=== PATIENT | male | born 1935 | race Caucasian/White ===

== ENCOUNTER 2016-06-19 09:00 | Day surgery (SDC) | payer OTHER, BC ==
[2016-06-18 14:32] VITALS: BMI 25.4
[2016-06-19] MEDS ORDERED: LIDOCAINE HCL/PF 2% SDV 5ML VIAL ONE (10:28)
[2016-06-19] MEDS ORDERED: PROPOFOL 20 ML ONE ×3 (10:28→10:29)
[2016-06-19 11:00] VITALS: TEMP 97.5
[2016-06-19 11:25] VITALS: BP 129/57; PULSE 73
--- NOTE | 2016-06-20 15:00 | PATH ---
Surgical Pathology Report Patient Name: NAKIA PORTER [facility]. Rec. #: [id number] /Age/Gender: 1935 (Age: 81) / M Account: [id number] Location: [facility]-ENDOSCOPY Taken: 06/19/2016 Received: 06/19/2016 Reported: 06/20/2016 Physicians: Ruddy Mason D.O. Specimen(s) Received A: BX CECUM B: BX DISTAL TRANSVERSE COLON POLYP Clinical History Fecal occult blood positive, history of colon polyps Colon polyp Final Diagnosis A. COLON, CECUM, BIOPSY: COLONIC MUCOSA WITH FOCAL ACTIVE COLITIS WITH SURFACE EROSION (SEE COMMENT). NO EVIDENCE OF SIGNIFICANT ARCHITECTURAL DISTORTION, GRANULOMATA OR DYSPLASIA. Comment: The findings are non-specific and may represent active colitis of various etiologies including infections and drug/toxin injury. No significant features of chronicity are seen: idiopathic bowel disease is less likely. Clinical and endoscopic correlations and follow up are suggested. B. COLON, DISTAL TRANSVERSE, POLYP, BIOPSY: POLYPOID FRAGMENT OF COLONIC MUCOSA WITH ACTIVE INFLAMMATION WITH SURFACE ULCERATION MOST CONSISTENT WITH INFLAMMATORY-TYPE POLYP. NO DYSPLASIA/ADENOMA IDENTIFIED. Electronically Signed Heber Crawford M.D. Gross Description A. Received in formalin, labeled "biopsy cecum" are 2 yanes, irregular portions of soft tissue averaging 0.2 cm in greatest dimension. The specimens are submitted in toto in one cassette. B. Received in formalin, labeled "biopsy distal transverse colon polyp" is a yanes, irregular portion of soft tissue measuring 0.3 cm in greatest dimension. The specimen is submitted in toto in one cassette. 06/19/2016 saudi06/19/2016
== END 2016-06-19 11:30 | disposition home or self-care (01) ==
LOC: JASU-ENDO 09:00
PROVIDERS: ATTEND Internal Medicine Gastroenterology
PROC: 0DBL8ZX Excision of Transverse Colon, Via Natural or Artificial Opening Endoscopic, Diagnostic (ICD-10-PCS; principal; 2016-06-19 10:00)
DX: Z12.11 Encounter for screening for malignant neoplasm of colon (principal); Z86.010 Personal history of colon polyps; D12.3 Benign neoplasm of transverse colon; K64.8 Other hemorrhoids; K92.1 Melena
CPT/HCPCS: 88305-TC

== ENCOUNTER 2017-12-09 14:55 | Inpatient (IN) | payer OTHER, BC ==
[2017-12-09 15:14] VITALS: BMI 25.0
--- NOTE | 2017-12-09 16:05 | PDOC ---
History of Present Illness - General Chief Complaint: Pain, Acute Stated Complaint: SENT BY PCP - History of Present Illness Initial Comments: The patient is an 82M with a history of T2DM and HTN who presents with 2d of RUQ bloating and fullness after meals. He was sent in for evaluation by his PCP , Dr. Erick Marley. The patient reports that he has never had symptoms like this before, endorses associated chills today, but denies fevers, N/V/C/D, denies chest pain, SOB, abdominal pain. Reports being compliant with his medications, his BG at home today was 125. The patient has a history of hernia repair in the past, but no other intra-abdominal surgery. 12/09/17 16:18 Past History - Past Medical History Allergies/Adverse Reactions: Allergies Allergy/AdvReac Type Severity Reaction Status Date / Time No Known Allergies Allergy Verified 12/09/17 15:06 Home Medications: Ambulatory Orders Aspirin Coated [Ecotrin -] 81 mg PO DAILY #1 02/01/12 Glimepiride [Amaryl] 2 mg PO DAILY 02/01/12 Metformin HCl [Riomet] 500 mg PO DAILY 02/01/12 Multivit-Min/FA/Lycopene/Lut [Centrum Silver Tablet] 1 each PO DAILY 02/01/12 Cholecalciferol (Vitamin D3) [Vitamin D -] 1,000 unit PO DAILY 06/19/16 Hydrochlorothiazide [Hctz -] 12.5 mg PO DAILY 06/19/16 Potassium Chloride [K-Dur -] 10 meq PO DAILY 06/19/16 Irbesartan [Avapro] 150 mg PO ASDIR 12/09/17 Magnesium Oxide [Mag-Ox -] 400 mg PO DAILY 12/09/17 Multivitamin/Iron/Folic Acid [Centrum Adults Tablet] 1 each PO DAILY 12/09/17 Telmisartan [Micardis] 40 mg PO DAILY 12/09/17 Anemia: No Asthma: No Cancer: Yes (skin rt ear) Cardiac Disorders: No CVA: No COPD: No CHF: No Dementia: No Diabetes: Yes (NIDDM) GI Disorders: No Disorders: No HTN: Yes Hypercholesterolemia: No Liver Disease: No Seizures: No Thyroid Disease: No - Surgical History Abdominal Surgery: No Appendectomy: No Cardiac Surgery: No Cholecystectomy: No Lung Surgery: No Neurologic Surgery: No - Suicide/Smoking/Psychosocial Hx Smoking History: Never smoked Hx Alcohol Use: Yes (DAILY) Drug/Substance Use Hx: No Substance Use Type: None Review of Systems - Review of Systems Able to Perform ROS?: Yes Comments:: GENERAL/CONSTITUTIONAL: No fever or chills. No weakness HEAD, EYES, EARS, NOSE AND THROAT: No change in vision. No ear pain or discharge. No sore throat CARDIOVASCULAR: No chest pain or shortness of breath RESPIRATORY: No cough, wheezing, or hemoptysis GASTROINTESTINAL: per HPI GENITOURINARY: No dysuria, frequency, or change in urination MUSCULOSKELETAL: No joint or muscle swelling or pain. No neck or back pain SKIN: No rash NEUROLOGIC: No headache, vertigo, loss of consciousness, or change in strength/ sensation ENDOCRINE: No increased thirst. No abnormal weight change HEMATOLOGIC/LYMPHATIC: No anemia, easy bleeding, or history of blood clots ALLERGIC/IMMUNOLOGIC: No hives or skin allergy 12/09/17 16:23 Is the patient limited Korean proficient: No *Physical Exam - Vital Signs Last Vital Signs Temp Pulse Resp BP Pulse Ox 97.8 F 66 17 177/62 96 12/09/17 15:11 12/09/17 15:11 12/09/17 15:11 12/09/17 15:11 12/09/17 15:11 - Physical Exam Comments: GENERAL: Awake, alert, and fully oriented, in no acute distress HEAD: No signs of trauma, normocephalic, atraumatic EYES: PERRLA, EOMI, sclera anicteric, conjunctiva clear ENT: R ear with recent skin ca lesion excision; Hearing grossly normal, nares patent, oropharynx clear without exudates. Moist mucosa NECK: Normal ROM, supple, no lymphadenopathy LUNGS: No distress, speaks full sentences, clear to auscultation bilaterally HEART: Regular rate and rhythm, normal S1 and S2, no murmurs appreciated, peripheral pulses normal and equal bilaterally ABDOMEN: Soft, NTTP, normoactive bowel sounds. No guarding, no rebound EXTREMITIES : Normal inspection, Normal range of motion, no edema. No clubbing or cyanosis NEUROLOGICAL: Cranial nerves II through XII grossly intact. Normal speech, normal gait, no focal sensorimotor deficits SKIN: Warm, Dry, normal turgor, no rashes or lesions noted 12/09/17 16:24 ED Treatment Course - LABORATORY CBC & Chemistry Diagram: 12/11/17 06:15 12/11/17 06:15 Medical Decision Making - Medical Decision Making The patient is an 82M with a history of HTN and T2DM who presents with 2 days of RUQ bloating after meals. ED Course CMP, CBC, Lipase, Trop I ECG, CXR, RUQ US 12/09/17 17:29 K 5.9, will give 30 of kayexalate Will give Simethicone for bloating UA without evidence of UTI Hyperglycemia 232, patient without ketones in urine 12/09/17 17:[address] A&P with trace intra-abdominal free air per prelim read. Pending final read, will plan for admit w/ surgical consult Patient make NPO and started on IV Abx Dispo: Admit 12/09/17 21:06 *DC/Admit/Observation/Transfer Diagnosis at time of Disposition: Abdominal bloating, Free intraperitoneal air, Hyperkalemia, Diverticulitis - Discharge Dispostion Condition at time of disposition: Good Decision to Admit order: Yes - Referrals - Patient Instructions - Post Discharge Activity
--- NOTE | 2017-12-09 16:46 | PDOC ---
Attending Attestation - Resident Resident Name: Leland Mendez - ED Attending Attestation I have performed the following: I have examined & evaluated the patient, The case was reviewed & discussed with the resident, I agree w/resident's findings & plan, Exceptions are as noted - HPI HPI: 12/09/17 16:45 82 yo male sent in for bloating,RUQ pain - Physicial Exam PE: 12/09/17 19:20 slender 82 yo male p/w RLQ pain head ncat eyes eomi neck supple lungs cta b/l cvs [id number] abd RLQ pain,tenderness ext full range of movement neuro axox3 skin warm and dry psych appropriate - Medical Decision Making 12/09/17 19:24 82 yo male sent by Dr Leanna Mcdonnell for abd pain p/w right sided abd pain PSH rt hernia repair p[foster ct scan w constrast 12/09/17 21:53 ct scan reveals a small pneumoperitoneum and an ileus Surgery, Dr Metcalf ppt made npo
[2017-12-09 16:52] LABS: HEMATOCRIT 46.4 % (35.4-49); HEMOGLOBIN 15.8 GM/dL (11.7-16.9); MCH 30.8 pg (25.7-33.7); MEAN CELL VOLUME 90.7 fl (80-96); MEAN PLT VOLUME 8.8 fl (7.5-11.1); PLATELET COUNT 184 K/MM3 (134-434); RBC 5.11 M/mm3 (4.00-5.60); RDW 13.6 % (11.9-15.9); WHITE BLOOD COUNT 12.9 K/mm3 (4.0-10.0)
[2017-12-09 17:13] LABS: ALBUMIN 3.8 g/dl (3.4-5.0); ANION GAP 10 MMOL/L (8-16); BILIRUBIN,TOTAL 0.9 mg/dL (0.2-1.0); BLOOD UREA NITROGEN 22 mg/dL (7-18); CALCIUM 9.3 mg/dL (8.5-10.1); CHLORIDE 96 mmol/L (98-107); CO2 27 mmol/L (21-32); CREATININE 1.3 mg/dL (0.7-1.3); GLUCOSE,RANDOM 232 mg/dL (74-106); LIPASE 149 U/L (73-393); POTASSIUM 5.9 mmol/L (3.5-5.1); SGOT/AST 15 U/L (15-37); SGPT/ALT 21 U/L (12-78); SODIUM 133 mmol/L (136-145); TOT PROT 7.1 g/dl (6.4-8.2)
[2017-12-09 17:14] LABS: ALK PHOS 87 U/L (45-117)
[2017-12-09] MEDS ORDERED: SIMETHICONE 80 MG TAB.CHEW (FP) PO ONE (17:31)
[2017-12-09] MEDS ORDERED: SODIUM POLYSTYRENE SULFONATE 15 GM/60 ML BOTTLE PO ONE (17:46)
[2017-12-09 17:51] LABS: URINE APPEARANCE CLEAR; URINE BILIRUBIN NEGATIVE (<2.0 mg/dL); URINE COLOR YELLOW; URINE GLUCOSE (UA) NEGATIVE (NEGATIVE); URINE KETONE NEGATIVE (NEGATIVE); URINE LEUK ESTERASE NEGATIVE (NEGATIVE); URINE NITRITE NEGATIVE (NEGATIVE); URINE PROTEIN NEGATIVE (NEGATIVE); URINE UROBILINOGEN NEGATIVE mg/dL (0.2-1.0)
[2017-12-09] MEDS ORDERED: SODIUM POLYSTYRENE SULFONATE 15 GM/60 ML BOTTLE ONE (18:39)
[2017-12-09] MEDS ORDERED: SODIUM CHLORIDE 500 ML IV STA (19:25)
[2017-12-09] MEDS ORDERED: metroNIDAZOLE 250 MG TABLET PO ONE (21:53)
[2017-12-10] MEDS: INSULIN SLIDING SCALE (NOVOLOG) 1 VIAL SQ SCH ×5 (00:34→23:04)
[2017-12-10] MEDS: SODIUM CHLORIDE 0.45% 1,000 ML IV SCH ×2 (00:34→16:55)
--- NOTE | 2017-12-10 06:52 | CONSULT ---
Consult Consult Specialty:: surgery Referred by:: Dr Marley Reason for Consultation:: Abdominal pain - History of Present Illness Chief Complaint: bloating and RLQ pain History of Present Illness: 82 yr old male with a hisstory of T2DM and HTN presents with RLQ abdominal pain annd Distention for the past 2 days. He denies fever or chills , denied nausea and vomiting or changes in BMs( last BM yesterday) He reports no similar episodes in the past. He was evaluated in CHRISTOPHER Marley's office and advised to go to the ED for further testing - History Source History Provided By: Patient - Past Surgical History Past Surgical History: Yes: Hernia Repair Additional Surgical History: hand surgery. head and neck surgery for skin cancer - Alcohol/Substance Use Hx Alcohol Use: Yes (DAILY) - Smoking History Smoking history: Never smoked Home Medications - Allergies Allergies/Adverse Reactions: Allergies Allergy/AdvReac Type Severity Reaction Status Date / Time No Known Allergies Allergy Verified 12/09/17 15:06 - Home Medications Home Medications: Ambulatory Orders Aspirin Coated [Ecotrin -] 81 mg PO DAILY #1 02/01/12 Glimepiride [Amaryl] 2 mg PO DAILY 02/01/12 Metformin HCl [Riomet] 500 mg PO DAILY 02/01/12 Multivit-Min/FA/Lycopene/Lut [Centrum Silver Tablet] 1 each PO DAILY 02/01/12 Cholecalciferol (Vitamin D3) [Vitamin D -] 1,000 unit PO DAILY 06/19/16 Hydrochlorothiazide [Hctz -] 12.5 mg PO DAILY 06/19/16 Potassium Chloride [K-Dur -] 10 meq PO DAILY 06/19/16 Irbesartan [Avapro] 150 mg PO ASDIR 12/09/17 Magnesium Oxide [Mag-Ox -] 400 mg PO DAILY 12/09/17 Multivitamin/Iron/Folic Acid [Centrum Adults Tablet] 1 each PO DAILY 12/09/17 Telmisartan [Micardis] 40 mg PO DAILY 12/09/17 Physical Exam Vital Signs: Vital Signs Temperature 97.7 F 12/09/17 23:54 Pulse Rate 82 12/09/17 23:54 Respiratory Rate 18 12/09/17 23:54 Blood Pressure 141/75 12/09/17 23:54 O2 Sat by Pulse Oximetry (%) 95 12/09/17 23:03 Gastrointestinal: Yes: Soft, Distention, Tenderness (minimally tenderness in the RLQ with no peritoneal signs) Labs: CBC, BMP 12/09/17 16:30 12/09/17 16:30 Imaging - Results Cat Scan: Report Reviewed, Image Reviewed (tortuous sigmoid colon appears tick waledl with some mild srtanding in the mesentery) Problem List - Problems (1) Diverticulitis Code(s): K57.92 - DVTRCLI OF INTEST, PART UNSP, W/O PERF OR ABSCESS W/O BLEED Assessment/Plan 82 yr old male diabetic presenting with RLQ pain and distention, mildly elevated WBC and small pockets of free in the peritoneal cavity. This is most likely acute diverticulitis with a microperforation. Since the patient is hemodynamically stable , afebrile and with a completely benign Abdomen on physical exam I recommend conservative management: NPO IV Fluids Antibiotics Close observation Consider repeat CT in 3-4 days depending on clinical evolution. Will follow with you
[2017-12-10 07:40] LABS: INR 1.23 (0.83-1.09); PROTHROMBIN TIME (PATIENT) 13.9 SEC (9.7-13.0)
[2017-12-10 07:42] LABS: HEMATOCRIT 39.1 % (35.4-49); HEMOGLOBIN 13.1 GM/dL (11.7-16.9); MCH 30.3 pg (25.7-33.7); MCHC 33.5 g/dl (32.0-35.9); MEAN CELL VOLUME 90.3 fl (80-96); MEAN PLT VOLUME 8.8 fl (7.5-11.1); PLATELET COUNT 151 K/MM3 (134-434); RBC 4.33 M/mm3 (4.00-5.60); RDW 13.6 % (11.9-15.9); WHITE BLOOD COUNT 7.3 K/mm3 (4.0-10.0)
[2017-12-10 07:58] LABS: CHLORIDE 102 mmol/L (98-107); POTASSIUM 3.9 mmol/L (3.5-5.1); SODIUM 137 mmol/L (136-145)
[2017-12-10 08:29] LABS: ANION GAP 13 MMOL/L (8-16); BLOOD UREA NITROGEN 13 mg/dL (7-18); CALCIUM 7.9 mg/dL (8.5-10.1); CO2 22 mmol/L (21-32); CREATININE 0.9 mg/dL (0.7-1.3); GLUCOSE,RANDOM 126 mg/dL (74-106)
[2017-12-10 10:40] LABS: ERYTHROCYTE SEDIMENTATION RATE 16 mm/hr (0-20)
[2017-12-10] MEDS: PANTOPRAZOLE SODIUM 40 MG VIAL IVPB SCH (11:15)
--- NOTE | 2017-12-10 15:45 | HP ---
Admitting History and Physical - Primary Care Physician PCP: Luc Augustin (cover for Dr Marley) - Admission Chief Complaint: pain abd History of Present Illness: The patient is an 82M with a history of T2DM and HTN who presents with 2d of RUQ bloating and fullness after meals. He was sent in for evaluation by his PCP , Dr. Erick Marley on 12/09/17 and advised him to go to ER. The patient reports that he has never had symptoms like this before, but denies fevers, N/V/ C/D, denies chest pain, SOB, He denies having other members in the family who are ill, or that he was ill himself prior to these turn of events. He denies pain/bloating at this time. Reports being compliant with his medications, his BG at home today was 125. The patient has a history of hernia repair in the past , but no other intra-abdominal surgery. History Source: Family Member, Medical Record Limitations to Obtaining History: Language Barrier, Poor Historian - Past Medical History Cardiovascular: Yes: HTN Endocrine: Yes: Diabetes Mellitus Dermatology: Yes: Basal Cell (s/p excision of neoplasm from RT ear as of recent) - Past Surgical History Past Surgical History: Yes: Hernia Repair Additional Past Surgical History: CTS....RUE - Smoking History Smoking history: Never smoked - Alcohol/Substance Use Hx Alcohol Use: Yes (DAILY) Home Medications - Allergies Allergies/Adverse Reactions: Allergies Allergy/AdvReac Type Severity Reaction Status Date / Time No Known Allergies Allergy Verified 12/09/17 15:06 - Home Medications Home Medications: Ambulatory Orders Aspirin Coated [Ecotrin -] 81 mg PO DAILY #1 02/01/12 Glimepiride [Amaryl] 2 mg PO DAILY 02/01/12 Metformin HCl [Riomet] 500 mg PO DAILY 02/01/12 Multivit-Min/FA/Lycopene/Lut [Centrum Silver Tablet] 1 each PO DAILY 02/01/12 Cholecalciferol (Vitamin D3) [Vitamin D -] 1,000 unit PO DAILY 06/19/16 Hydrochlorothiazide [Hctz -] 12.5 mg PO DAILY 06/19/16 Potassium Chloride [K-Dur -] 10 meq PO DAILY 06/19/16 Irbesartan [Avapro] 150 mg PO ASDIR 12/09/17 Magnesium Oxide [Mag-Ox -] 400 mg PO DAILY 12/09/17 Multivitamin/Iron/Folic Acid [Centrum Adults Tablet] 1 each PO DAILY 12/09/17 Telmisartan [Micardis] 40 mg PO DAILY 12/09/17 Family Disease History - Family Disease History Family History: Unremarkable Review of Systems - Review of Systems Constitutional: reports: No Symptoms Eyes: reports: No Symptoms HENT: reports: No Symptoms Neck: reports: No Symptoms Cardiovascular: reports: No Symptoms Respiratory: reports: No Symptoms Gastrointestinal: reports: Bloating Genitourinary: reports: No Symptoms Musculoskeletal: reports: No Symptoms Integumentary: reports: No Symptoms Neurological: reports: No Symptoms Endocrine: reports: No Symptoms Hematology/Lymphatic: reports: No Symptoms Psychiatric: reports: No Symptoms Physical Examination Vital Signs: Vital Signs Temperature 97.6 F 12/10/17 15:36 Pulse Rate 67 12/10/17 15:36 Respiratory Rate 18 12/10/17 15:36 Blood Pressure 133/68 12/10/17 15:36 O2 Sat by Pulse Oximetry (%) 95 12/09/17 23:03 Constitutional: Yes: Well Nourished, No Distress Eyes: Yes: WNL, Conjunctiva Clear HENT: Yes: Normocephalic Neck: Yes: Supple Cardiovascular: Yes: Regular Rate and Rhythm Respiratory: Yes: Regular Gastrointestinal: Yes: Normal Bowel Sounds, Soft ...Rectal Exam: Yes: Deferred Renal/: Yes: WNL Extremities: Yes: WNL Edema: No Integumentary: Yes: WNL Neurological: Yes: WNL, Alert ...Motor Strength: WNL Psychiatric: Yes: WNL Labs: CBC, BMP 12/10/17 06:00 12/10/17 06:00 Laboratory Tests 12/09/17 12/09/17 12/09/17 16:19 16:30 16:30 WBC 12.9 H RBC 5.11 Hgb 15.8 Hct 46.4 MCV 90.7 MCH 30.8 MCHC 34.0 RDW 13.6 Plt Count 184 MPV 8.8 ESR PT with INR INR Sodium 133 L Potassium 5.9 H D Chloride 96 L Carbon Dioxide 27 Anion Gap 10 BUN 22 H Creatinine 1.3 Creat Clearance w eGFR 52.85 POC Glucometer Random Glucose 232 H D Hemoglobin A1c % Calcium 9.3 Total Bilirubin 0.9 AST 15 ALT 21 Alkaline Phosphatase 87 Troponin I Total Protein 7.1 Albumin 3.8 Lipase 149 TSH Urine Color Yellow Urine Appearance Clear Urine pH 6.0 Ur Specific [place] 1.018 Urine Protein Negative Urine Glucose (UA) Negative Urine Ketones Negative Urine Blood Negative Urine Nitrite Negative Urine Bilirubin Negative Urine Urobilinogen Negative Ur Leukocyte Esterase Negative 12/09/17 12/10/17 12/10/17 16:30 00:33 06:00 WBC 7.3 RBC 4.33 Hgb 13.1 Hct 39.1 D MCV 90.3 MCH 30.3 MCHC 33.5 RDW 13.6 Plt Count 151 MPV 8.8 ESR 16 PT with INR INR Sodium Potassium Chloride Carbon Dioxide Anion Gap BUN Creatinine Creat Clearance w eGFR POC Glucometer 167 Random Glucose Hemoglobin A1c % Calcium Total Bilirubin AST ALT Alkaline Phosphatase Troponin I < 0.02 Total Protein Albumin Lipase TSH Urine Color Urine Appearance Urine pH Ur Specific [place] Urine Protein Urine Glucose (UA) Urine Ketones Urine Blood Urine Nitrite Urine Bilirubin Urine Urobilinogen Ur Leukocyte Esterase 12/10/17 12/10/17 12/10/17 06:00 06:00 06:00 WBC RBC Hgb Hct MCV MCH MCHC RDW Plt Count MPV ESR PT with INR 13.90 H INR 1.23 H Sodium 137 Potassium 3.9 D Chloride 102 Carbon Dioxide 22 Anion Gap 13 BUN 13 Creatinine 0.9 Creat Clearance w eGFR > 60 POC Glucometer Random Glucose 126 H D Hemoglobin A1c % 6.1 H Calcium 7.9 L Total Bilirubin AST ALT Alkaline Phosphatase Troponin I Total Protein Albumin Lipase TSH 0.60 Urine Color Urine Appearance Urine pH Ur Specific [place] Urine Protein Urine Glucose (UA) Urine Ketones Urine Blood Urine Nitrite Urine Bilirubin Urine Urobilinogen Ur Leukocyte Esterase 12/10/17 12/10/17 06:32 11:12 WBC RBC Hgb Hct MCV MCH MCHC RDW Plt Count MPV ESR PT with INR INR Sodium Potassium Chloride Carbon Dioxide Anion Gap BUN Creatinine Creat Clearance w eGFR POC Glucometer 134 159 Random Glucose Hemoglobin A1c % Calcium Total Bilirubin AST ALT Alkaline Phosphatase Troponin I Total Protein Albumin Lipase TSH Urine Color Urine Appearance Urine pH Ur Specific [place] Urine Protein Urine Glucose (UA) Urine Ketones Urine Blood Urine Nitrite Urine Bilirubin Urine Urobilinogen Ur Leukocyte Esterase Urine Test Results Urine Color Yellow 12/09/17 16:19 Urine Appearance Clear 12/09/17 16:19 Urine pH 6.0 (5.0-8.0) 12/09/17 16:19 Ur Specific [place] 1.018 (1.001-1.035) 12/09/17 16:19 Urine Protein Negative (NEGATIVE) 12/09/17 16:19 Urine Glucose (UA) Negative (NEGATIVE) 12/09/17 16:19 Urine Ketones Negative (NEGATIVE) 12/09/17 16:19 Urine Blood Negative (NEGATIVE) 12/09/17 16:19 Urine Nitrite Negative (NEGATIVE) 12/09/17 16:19 Urine Bilirubin Negative (<2.0 mg/dL) 12/09/17 16:19 Ur Leukocyte Esterase Negative (NEGATIVE) 12/09/17 16:19 Imaging - Results Chest X-ray: Report Reviewed Cat Scan: Report Reviewed Problem List - Problems (1) Intestinal perforation Assessment/Plan: probably the cause of his abd bloating as described; seen by surgeon who feels it may be due to micro perf from divertic Dz. No intervention other than conservative measures. Keep NPO for now; Abs; will check FUA in AM Code(s): K63.1 - PERFORATION OF INTESTINE (NONTRAUMATIC) (2) Diabetes Assessment/Plan: hold all PO meds; check BGMs for now Code(s): E11.9 - TYPE 2 DIABETES MELLITUS WITHOUT COMPLICATIONS Qualifiers: Diabetes mellitus type: type 2 Diabetes mellitus complication status: with unspecified complications (3) Diverticulitis Assessment/Plan: mild,but may have been the cause of the perf (see above) Code(s): K57.92 - DVTRCLI OF INTEST, PART UNSP, W/O PERF OR ABSCESS W/O BLEED (4) Hypertension Assessment/Plan: is NPO; BP okay at this time w/o meds Code(s): I10 - ESSENTIAL (PRIMARY) HYPERTENSION Qualifiers: Hypertension type: essential hypertension Qualified Code(s): I10 - Essential (primary) hypertension (5) Hyperkalemia Assessment/Plan: is on potassium QOD; given to him to counter diuretic effects PLAN: hold all meds Code(s): E87.5 - HYPERKALEMIA (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 ~~~~~~~~~~~~~~~~~~ Dr Augustin
--- NOTE | 2017-12-10 17:16 | EKG ---
Test Reason : Blood Pressure : / mmHG Vent. Rate : 104 BPM Atrial Rate : 104 BPM P-R Int : 194 ms QRS Dur : 146 ms QT Int : 362 ms P-R-T Axes : 033 -68 052 degrees QTc Int : 476 ms SINUS TACHYCARDIA RIGHT BUNDLE BRANCH BLOCK LEFT ANTERIOR FASCICULAR BLOCK BIFASCICULAR BLOCK MINIMAL VOLTAGE CRITERIA FOR LVH, MAY BE NORMAL VARIANT SEPTAL INFARCT , AGE UNDETERMINED ABNORMAL ECG Confirmed by MD MARIANO, TRINIDAD ([id number]) on 12/10/2017 5:16:41 PM Referred By: Confirmed By:TRINIDAD QUINTANA MD
--- NOTE | 2017-12-10 20:22 | PN ---
Progress Note, Physician History of Present Illness: HD#2 for acute diverticulitis and microperf., feeling better denies any abdominal pain Co's of insomnia - Current Medication List Current Medications: Active Medications Bacitracin (Bacitracin -) 1 applic TP TID ESTELA Metronidazole (Flagyl 500mg Premixed Ivpb -) 500 mg in 100 mls @ 100 mls/hr IVPB Q8H-IV ESTELA Last Admin: 12/10/17 17:37 Dose: 100 mls/hr Levofloxacin (Levaquin 500 Mg Premixed Ivpb -) 500 mg in 100 mls @ 100 mls/hr IVPB DAILY@0800 [facility]; Protocol Stop: 12/18/17 07:59 Last Admin: 12/10/17 08:57 Dose: 100 mls/hr Sodium Chloride (1/2 Normal Saline) 1,000 mls @ 75 mls/hr IV ASDIR [facility] Last Admin: 12/10/17 16:55 Dose: 75 mls/hr Insulin Aspart (Novolog Vial Sliding Scale -) 1 vial SQ Q6HPO [facility]; Protocol Last Admin: 12/10/17 17:37 Dose: Not Given Pantoprazole Sodium (Protonix Iv) 40 mg IVPB DAILY [facility] Last Admin: 12/10/17 11:15 Dose: 40 mg - Objective Vital Signs: Vital Signs Temperature 98.1 F 12/10/17 18:00 Pulse Rate 67 12/10/17 18:00 Respiratory Rate 20 12/10/17 18:00 Blood Pressure 138/66 12/10/17 18:00 O2 Sat by Pulse Oximetry (%) 100 12/10/17 09:00 Labs: CBC, BMP 12/10/17 06:00 12/10/17 06:00 INR, PTT INR 1.23 (0.83-1.09) H 12/10/17 06:00 Problem List - Problems (1) Diverticulitis Code(s): K57.92 - DVTRCLI OF INTEST, PART UNSP, W/O PERF OR ABSCESS W/O BLEED Assessment/Plan Diverticulitis with microperforation . doing well responding to antibiotics WBC decreasing Start clears Ambien for sleep
[2017-12-10] MEDS ORDERED: ZOLPIDEM TARTRATE 5 MG TABLET PO ONE (20:23)
[2017-12-10] MEDS: BACITRACIN 15 GM TUBE TOPICAL OINTMENT TP SCH (22:34)
[2017-12-11] MEDS: INSULIN SLIDING SCALE (NOVOLOG) 1 VIAL SQ SCH ×4 (06:32→23:28)
[2017-12-11] MEDS: BACITRACIN 15 GM TUBE TOPICAL OINTMENT TP SCH ×3 (06:33→21:34)
[2017-12-11] MEDS: SODIUM CHLORIDE 0.45% 1,000 ML IV SCH ×2 (06:33→23:32)
[2017-12-11 07:14] LABS: HEMOGLOBIN 13.4 GM/dL (11.7-16.9); MCH 30.7 pg (25.7-33.7); MCHC 34.2 g/dl (32.0-35.9); MEAN CELL VOLUME 89.5 fl (80-96); MEAN PLT VOLUME 8.6 fl (7.5-11.1); PLATELET COUNT 155 K/MM3 (134-434); RBC 4.36 M/mm3 (4.00-5.60); RDW 13.5 % (11.9-15.9); WHITE BLOOD COUNT 7.4 K/mm3 (4.0-10.0)
[2017-12-11 07:53] LABS: ANION GAP 10 MMOL/L (8-16); BLOOD UREA NITROGEN 12 mg/dL (7-18); CALCIUM 7.7 mg/dL (8.5-10.1); CHLORIDE 103 mmol/L (98-107); CO2 24 mmol/L (21-32); CREATININE 0.9 mg/dL (0.7-1.3); GLUCOSE,RANDOM 76 mg/dL (74-106); POTASSIUM 3.8 mmol/L (3.5-5.1); SODIUM 137 mmol/L (136-145)
[2017-12-11] MEDS: PANTOPRAZOLE SODIUM 40 MG VIAL IVPB SCH (09:44)
--- NOTE | 2017-12-11 13:45 | PN ---
Progress Note (short form) - Note Progress Note: Current Medications Bacitracin (Bacitracin -) 1 applic TP TID ESTELA Last Admin: 12/11/17 06:33 Dose: 1 applic Metronidazole (Flagyl 500mg Premixed Ivpb -) 500 mg in 100 mls @ 100 mls/hr IVPB Q8H-IV ESTELA Last Admin: 12/11/17 09:44 Dose: 100 mls/hr Levofloxacin (Levaquin 500 Mg Premixed Ivpb -) 500 mg in 100 mls @ 100 mls/hr IVPB DAILY@0800 [facility]; Protocol Stop: 12/18/17 07:59 Last Admin: 12/11/17 11:25 Dose: 100 mls/hr Sodium Chloride (1/2 Normal Saline) 1,000 mls @ 75 mls/hr IV ASDIR [facility] Last Admin: 12/11/17 06:33 Dose: 75 mls/hr Insulin Aspart (Novolog Vial Sliding Scale -) 1 vial SQ Q6HPO [facility]; Protocol Last Admin: 12/11/17 11:44 Dose: Not Given Pantoprazole Sodium (Protonix Iv) 40 mg IVPB DAILY ESTELA Last Admin: 12/11/17 09:44 Dose: 40 mg Vital Signs Period Temp Pulse Resp BP Sys/[place] Pulse Ox Last 24 Hr 97.6 F-98.2 F 67-75 18-20 129-154/58-73 100 Laboratory Results - last 24 hr 12/10/17 12/10/17 12/11/17 16:41 22:48 05:51 WBC RBC Hgb Hct MCV MCH MCHC RDW Plt Count MPV Sodium Potassium Chloride Carbon Dioxide Anion Gap BUN Creatinine Creat Clearance w eGFR POC Glucometer 93 94 83 Random Glucose Calcium 12/11/17 12/11/17 12/11/17 06:15 06:15 11:42 WBC 7.4 RBC 4.36 Hgb 13.4 Hct 39.0 MCV 89.5 MCH 30.7 MCHC 34.2 RDW 13.5 Plt Count 155 MPV 8.6 Sodium 137 Potassium 3.8 Chloride 103 Carbon Dioxide 24 Anion Gap 10 BUN 12 Creatinine 0.9 Creat Clearance w eGFR > 60 POC Glucometer 178 Random Glucose 76 D Calcium 7.7 L CC; feels better ```````````````` skin--NL color heart--RR lungs--clear abd--soft, BS+, NT, ND neuro--alert, coherent; no focal deficits; cogn intact ````````````````````````````````` summ > intestinal perf--as shown by free air in peritoneum; likley 2nd microperf 2nd divertic dz; no surg intervention needed; on Abs and clear liquids as per surgeon; will re-scan. > Htn--BP in adequate range at this time without BP meds > DM--glucose in good range without DM ~~~~~~~~~~~~~ Dr Augustin Problem List - Problems (1) Intestinal perforation Code(s): K63.1 - PERFORATION OF INTESTINE (NONTRAUMATIC) (2) Diabetes Code(s): E11.9 - TYPE 2 DIABETES MELLITUS WITHOUT COMPLICATIONS Qualifiers: Diabetes mellitus type: type 2 Diabetes mellitus complication status: with unspecified complications (3) Diverticulitis Code(s): K57.92 - DVTRCLI OF INTEST, PART UNSP, W/O PERF OR ABSCESS W/O BLEED (4) Hypertension Code(s): I10 - ESSENTIAL (PRIMARY) HYPERTENSION Qualifiers: Hypertension type: essential hypertension Qualified Code(s): I10 - Essential (primary) hypertension (5) Hyperkalemia Code(s): E87.5 - HYPERKALEMIA (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
[2017-12-11] MEDS: ZOLPIDEM TARTRATE 5 MG TABLET PO PRN (23:29)
[2017-12-12] MEDS: BACITRACIN 15 GM TUBE TOPICAL OINTMENT TP SCH ×3 (06:03→21:35)
[2017-12-12] MEDS: INSULIN SLIDING SCALE (NOVOLOG) 1 VIAL SQ SCH ×4 (06:04→23:51)
[2017-12-12] MEDS: PANTOPRAZOLE SODIUM 40 MG VIAL IVPB SCH (09:32)
[2017-12-12] MEDS ORDERED: INSULIN (NOVOLOG) ASPART 100 UNITS/ML 10ML VIAL ONE (11:09)
--- NOTE | 2017-12-12 15:54 | PN ---
Progress Note (short form) - Note Progress Note: Current Medications Bacitracin (Bacitracin -) 1 applic TP TID [facility] Last Admin: 12/12/17 13:02 Dose: 1 applic Metronidazole (Flagyl 500mg Premixed Ivpb -) 500 mg in 100 mls @ 100 mls/hr IVPB Q8H-IV [facility]ELA Last Admin: 12/12/17 09:32 Dose: 100 mls/hr Levofloxacin (Levaquin 500 Mg Premixed Ivpb -) 500 mg in 100 mls @ 100 mls/hr IVPB DAILY@0800 [facility]; Protocol Stop: 12/18/17 07:59 Last Admin: 12/12/17 08:43 Dose: 100 mls/hr Sodium Chloride (1/2 Normal Saline) 1,000 mls @ 75 mls/hr IV ASDIR [facility] Last Admin: 12/11/17 23:32 Dose: 75 mls/hr Insulin Aspart (Novolog Vial Sliding Scale -) 1 vial SQ Q6HPO [facility]; Protocol Last Admin: 12/12/17 11:11 Dose: 3 units Pantoprazole Sodium (Protonix Iv) 40 mg IVPB DAILY [facility] Last Admin: 12/12/17 09:32 Dose: 40 mg Zolpidem Tartrate (Ambien -) 5 mg PO HS PRN PRN Reason: INSOMNIA Last Admin: 12/11/17 23:29 Dose: 5 mg Laboratory Results - last 24 hr 12/11/17 12/11/17 12/12/17 17:19 23:28 06:03 POC Glucometer 134 151 168 12/12/17 11:06 POC Glucometer 217 Vital Signs Period Temp Pulse Resp BP Sys/Toscano Pulse Ox Last 24 Hr 97.3 F-98.2 F 66-88 18-22 130-158/66-87 97-98 CC; feels okay ```````````````` skin--NL color; IV site okay heart--RR lungs--clear abd--soft, BS+, NT, ND neuro--alert, coherent; no focal deficits; cogn intact ````````````````````````````````` summ > intestinal perf--again shown by free air in peritoneum on 2nd CT scan; sintia 2nd microperf 2nd divertic dz; on Abs and clear liquids as per surgeon; will request f/u surg eval. > Htn--BP in adequate range at this time without BP meds > DM--glucose in mid 100's on avg > hyponatremia--corrected ~~~~~~~~~~~~~ Dr Augustin Problem List - Problems (1) Intestinal perforation Code(s): K63.1 - PERFORATION OF INTESTINE (NONTRAUMATIC) (2) Diabetes Code(s): E11.9 - TYPE 2 DIABETES MELLITUS WITHOUT COMPLICATIONS Qualifiers: Diabetes mellitus type: type 2 Diabetes mellitus complication status: with unspecified complications (3) Diverticulitis Code(s): K57.92 - DVTRCLI OF INTEST, PART UNSP, W/O PERF OR ABSCESS W/O BLEED (4) Hypertension Code(s): I10 - ESSENTIAL (PRIMARY) HYPERTENSION Qualifiers: Hypertension type: essential hypertension Qualified Code(s): I10 - Essential (primary) hypertension (5) Hyperkalemia Code(s): E87.5 - HYPERKALEMIA (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
[2017-12-12] MEDS: SODIUM CHLORIDE 0.45% 1,000 ML IV SCH ×2 (16:42→23:51)
[2017-12-12] MEDS ORDERED: PT OWN MED DRAWER 7, Y5N ONE (17:22)
--- NOTE | 2017-12-12 20:48 | PN ---
Progress Note, Physician Chief Complaint: Denies any pain History of Present Illness: HD #4 for evaluation and observation for RLQ pain and pneumoperitoneum - Current Medication List Current Medications: Active Medications Bacitracin (Bacitracin -) 1 applic TP TID [facility] Last Admin: 12/12/17 13:02 Dose: 1 applic Metronidazole (Flagyl 500mg Premixed Ivpb -) 500 mg in 100 mls @ 100 mls/hr IVPB Q8H-IV ESTELA Last Admin: 12/12/17 17:36 Dose: 100 mls/hr Levofloxacin (Levaquin 500 Mg Premixed Ivpb -) 500 mg in 100 mls @ 100 mls/hr IVPB DAILY@0800 [facility]; Protocol Stop: 12/18/17 07:59 Last Admin: 12/12/17 08:43 Dose: 100 mls/hr Sodium Chloride (1/2 Normal Saline) 1,000 mls @ 75 mls/hr IV ASDIR [facility] Last Admin: 12/12/17 16:42 Dose: 75 mls/hr Insulin Aspart (Novolog Vial Sliding Scale -) 1 vial SQ Q6HPO [facility]; Protocol Last Admin: 12/12/17 17:35 Dose: Not Given Pantoprazole Sodium (Protonix Iv) 40 mg IVPB DAILY [facility] Last Admin: 12/12/17 09:32 Dose: 40 mg Zolpidem Tartrate (Ambien -) 5 mg PO HS PRN PRN Reason: INSOMNIA Last Admin: 12/11/17 23:29 Dose: 5 mg - Objective Vital Signs: Vital Signs Temperature 98.0 F 12/12/17 16:56 Pulse Rate 86 12/12/17 16:56 Respiratory Rate 20 12/12/17 16:56 Blood Pressure 150/86 12/12/17 16:56 O2 Sat by Pulse Oximetry (%) 97 12/12/17 09:00 Gastrointestinal: Yes: WNL (completely benign exam) Labs: CBC, BMP 12/11/17 06:15 12/11/17 06:15 INR, PTT INR 1.23 (0.83-1.09) H 12/10/17 06:00 Problem List - Problems (1) Diverticulitis Code(s): K57.92 - DVTRCLI OF INTEST, PART UNSP, W/O PERF OR ABSCESS W/O BLEED Assessment/Plan Doing well Repeat CT scan reviewed, small air bubles no free fluid no inflammatory process seen. Most likely this a microperforation from diverticular disease. No need for intervention Recommend advancing to regular diet and dc home if tolerating diet without recurrence of symptoms To follow up as an outpatient and consider Colonoscopy in 6 weeks
[2017-12-12] MEDS: ZOLPIDEM TARTRATE 5 MG TABLET PO PRN (21:35)
[2017-12-13] MEDS: BACITRACIN 15 GM TUBE TOPICAL OINTMENT TP SCH ×3 (05:51→22:27)
[2017-12-13] MEDS: INSULIN SLIDING SCALE (NOVOLOG) 1 VIAL SQ SCH ×4 (05:52→23:13)
[2017-12-13] MEDS: SODIUM CHLORIDE 0.45% 1,000 ML IV SCH ×2 (05:53→23:13)
[2017-12-13 07:12] LABS: HEMATOCRIT 38.5 % (35.4-49); HEMOGLOBIN 13.2 GM/dL (11.7-16.9); MCH 30.3 pg (25.7-33.7); MCHC 34.2 g/dl (32.0-35.9); MEAN CELL VOLUME 88.5 fl (80-96); MEAN PLT VOLUME 7.7 fl (7.5-11.1); PLATELET COUNT 162 K/MM3 (134-434); RBC 4.34 M/mm3 (4.00-5.60); RDW 13.2 % (11.9-15.9); WHITE BLOOD COUNT 5.2 K/mm3 (4.0-10.0)
[2017-12-13 07:50] LABS: ANION GAP 10 MMOL/L (8-16); BLOOD UREA NITROGEN 9 mg/dL (7-18); CALCIUM 7.7 mg/dL (8.5-10.1); CHLORIDE 102 mmol/L (98-107); CO2 24 mmol/L (21-32); GLUCOSE,RANDOM 118 mg/dL (74-106); POTASSIUM 3.8 mmol/L (3.5-5.1); SODIUM 136 mmol/L (136-145)
--- NOTE | 2017-12-13 09:09 | PN ---
Progress Note (short form) - Note Progress Note: surgery 82 yo male being followed for suspected diverticulitis with microperforation seen and examined at bedside with no new complaints. Patient states he has no pain and feels better this morning. He ate a full diet (breakfast) for the first time and denies any vomiting, nausea, fever, chills, SOB, new or worsening pain. After breakfast he reported to have a painless, non-bloody BM. Vital Signs Temp 98.2 F 12/13/17 05:00 Pulse 70 12/13/17 05:00 Resp 20 12/13/17 05:00 BP 132/71 12/13/17 05:00 Pulse Ox 98 12/12/17 20:44 Intake & Output 12/12/17 12/12/17 12/13/17 11:59 23:59 11:59 Intake Total 1790 1320 1375 Output Total 1200 1100 Balance 590 1320 275 Intake: IV 825 820 825 1/2 Normal Saline 1,000 825 820 825 ml @ 75 mls/hr IV ASDIR ESTELA Rx#:[id number] IVPB 300 100 100 Oral 665 400 450 Output: Urine 1200 1100 Void 1200 1100 Other: Voiding Method Urinal Urinal # Unmeasured Voids Void 2 Bowel Movement No No No CBC, BMP 12/13/17 06:00 12/13/17 06:00 PE: A&Ox3, NAD unlabored resp on RA ABD: soft, NT in all quadrants, ND, no palpable masses. no lesions or notable scars. B/L LE compartments soft, supple and non-tender Problem List - Problems (1) Diverticulitis Assessment/Plan: 82yo with suspected diverticulitis and mircoperf clinically improving with no indication for surgical intervention. 1) continue regular DM diet if tolerating. 2) IV ABX per medicine 3) OOB as tolerated 4) Follow up with Dr Gage as out patient 5) Re-consult surgery PRN Code(s): K57.92 - DVTRCLI OF INTEST, PART UNSP, W/O PERF OR ABSCESS W/O BLEED
[2017-12-13] MEDS ORDERED: PANTOPRAZOLE SODIUM 40 MG VIAL IVPUSH SCH (10:37)
[2017-12-13] MEDS: PANTOPRAZOLE SODIUM 40 MG VIAL IVPB SCH (12:20)
--- NOTE | 2017-12-13 16:47 | PN ---
Progress Note (short form) - Note Progress Note: Current Medications Bacitracin (Bacitracin -) 1 applic TP TID [facility] Last Admin: 12/13/17 14:03 Dose: 1 applic Metronidazole (Flagyl 500mg Premixed Ivpb -) 500 mg in 100 mls @ 100 mls/hr IVPB Q8H-IV [facility]EL[facility] Last Admin: 12/13/17 12:00 Dose: 100 mls/hr Levofloxacin (Levaquin 500 Mg Premixed Ivpb -) 500 mg in 100 mls @ 100 mls/hr IVPB DAILY@0800 [facility]; Protocol Stop: 12/18/17 07:59 Last Admin: 12/13/17 10:02 Dose: 100 mls/hr Sodium Chloride (1/2 Normal Saline) 1,000 mls @ 75 mls/hr IV ASDIR [facility] Last Admin: 12/13/17 05:53 Dose: 75 mls/hr Insulin Aspart (Novolog Vial Sliding Scale -) 1 vial SQ Q6HPO [facility]; Protocol Last Admin: 12/13/17 12:19 Dose: 3 units Pantoprazole Sodium (Protonix Iv) 40 mg IVPUSH DAILY [facility] Zolpidem Tartrate (Ambien -) 5 mg PO HS PRN PRN Reason: INSOMNIA Last Admin: 12/12/17 21:35 Dose: 5 mg Laboratory Results - last 24 hr 12/12/17 12/12/17 12/13/17 16:39 23:50 05:50 WBC RBC Hgb Hct MCV MCH MCHC RDW Plt Count MPV Sodium Potassium Chloride Carbon Dioxide Anion Gap BUN Creatinine Creat Clearance w eGFR POC Glucometer 106 132 122 Random Glucose Calcium 12/13/17 12/13/17 12/13/17 06:00 06:00 12:18 WBC 5.2 RBC 4.34 Hgb 13.2 Hct 38.5 MCV 88.5 MCH 30.3 MCHC 34.2 RDW 13.2 Plt Count 162 MPV 7.7 D Sodium 136 Potassium 3.8 Chloride 102 Carbon Dioxide 24 Anion Gap 10 BUN 9 Creatinine 1.0 Creat Clearance w eGFR > 60 POC Glucometer 206 Random Glucose 118 H Calcium 7.7 L Vital Signs Period Temp Pulse Resp BP Sys/Toscano Pulse Ox Last 24 Hr 97.5 F-98.2 F 67-86 18-20 114-153/66-86 97-98 CC; feels okay so far ```````````````` skin--NL color; IV site okay heart--RR lungs--clear abd--soft, BS+, NT, ND neuro--alert, coherent; no focal deficits; cogn intact ````````````````````````````````` summ > intestinal perf--again shown by free air in peritoneum on 2nd CT scan; seen again by surgeon who does not feel any intervention is needed; diet advanced; if remains okay will d/c in AM. > Htn--BP in adequate range at this time > DM--BGM glucose in mid 100's on avg > hyponatremia--corrected ~~~~~~~~~~~~~ Dr Augustin ................................case discussed with . Problem List - Problems (1) Intestinal perforation Code(s): K63.1 - PERFORATION OF INTESTINE (NONTRAUMATIC) (2) Diabetes Code(s): E11.9 - TYPE 2 DIABETES MELLITUS WITHOUT COMPLICATIONS Qualifiers: Diabetes mellitus type: type 2 Diabetes mellitus complication status: with unspecified complications (3) Diverticulitis Code(s): K57.92 - DVTRCLI OF INTEST, PART UNSP, W/O PERF OR ABSCESS W/O BLEED (4) Hypertension Code(s): I10 - ESSENTIAL (PRIMARY) HYPERTENSION Qualifiers: Hypertension type: essential hypertension Qualified Code(s): I10 - Essential (primary) hypertension (5) Hyperkalemia Code(s): E87.5 - HYPERKALEMIA (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
[2017-12-13] MEDS: ZOLPIDEM TARTRATE 5 MG TABLET PO PRN (23:13)
[2017-12-14] MEDS: BACITRACIN 15 GM TUBE TOPICAL OINTMENT TP SCH ×2 (06:18→14:01)
[2017-12-14] MEDS: INSULIN SLIDING SCALE (NOVOLOG) 1 VIAL SQ SCH ×2 (06:18→12:32)
[2017-12-14 08:49] VITALS: BP 162/90
[2017-12-14] MEDS ORDERED: amLODIPine BESYLATE 2.5 MG TABLET (FP) PO ONE (09:30)
[2017-12-14] MEDS ORDERED: INSULIN (NOVOLOG) ASPART 100 UNITS/ML 10ML VIAL ONE (12:27)
[2017-12-14] MEDS ORDERED: PT OWN MED DRAWER 7, Y5N ONE (13:53)
[2017-12-14 14:24] VITALS: PULSE 71; TEMP 97.7
--- NOTE | 2017-12-14 15:19 | DS ---
Physical Examination Vital Signs: Vital Signs Temperature 97.7 F 12/14/17 14:23 Pulse Rate 71 12/14/17 14:23 Respiratory Rate 17 12/14/17 14:23 Blood Pressure 162/90 12/14/17 14:23 O2 Sat by Pulse Oximetry (%) 97 12/13/17 21:00 Findings/Remarks: skin--no acute lesions/rashes noted head--NC eyes--midline; non injected; eomi neck--no masses lungs--clear heart--RR abd--soft; BS+; ext--no edema appreciated; no ischemic changes neuro--awake; verbal, in NAD; no focal deficits Labs: CBC, BMP 12/13/17 06:00 12/13/17 06:00 Discharge Summary Reason For Visit: DIABETES MELLITUS, OPEN WOUND OF EAR, Current Active Problems Abdominal bloating (Acute) Cancer of skin of right ear (Acute) Diabetes (Acute) Diverticulitis (Acute) Free intraperitoneal air (Acute) Hyperkalemia (Acute) Hypertension (Acute) Intestinal perforation (Acute) PAD (RLE) hyponatremia Hospital Course: admitted c/o abd bloating which showed that he had intraperitoneal air; likley 2nd microperf from divertic dz. He denied having pain, vomiting or diarrhea or displayed peritoneal signs on exam. He was seen by Surgeon who did not feel he required surgery and opted for conservative managment. He was placed on Abs liquid diet and was advanced slowly. His vitals remained stable. He tolerated solid foods and had effective painless BMs. reapt abd CT still showed some air but he improved clinically. He was advised on dietary adjustments; he is to cont with oral antibiotics and f/u with PCP as OP. Condition: Good - Instructions Diet, Activity, Other Instructions: soft diet eat foods with no seeds boil all leafy vegetables avoid hard to digest foods, or very starchy foods avoid foods with high sugar content check finger stick glucose and BP as before call Dr Marley for follow up Referrals: Erick Marley MD [Primary Care Provider] - Disposition: HOME - Home Medications Comprehensive Discharge Medication List: Ambulatory Orders Aspirin Coated [Ecotrin -] 81 mg PO DAILY #1 02/01/12 Glimepiride [Amaryl] 2 mg PO DAILY 02/01/12 Multivit-Min/FA/Lycopene/Lut [Centrum Silver Tablet] 1 each PO DAILY 02/01/12 Cholecalciferol (Vitamin D3) [Vitamin D -] 1,000 unit PO DAILY 06/19/16 Hydrochlorothiazide [Hctz -] 12.5 mg PO DAILY 06/19/16 Irbesartan [Avapro] 150 mg PO ASDIR 12/09/17 Magnesium Oxide [Mag-Ox -] 400 mg PO DAILY 12/09/17 Levofloxacin [Levaquin] 500 mg PO DAILY #7 tablet 12/14/17
== END 2017-12-14 16:33 | disposition home or self-care (01) | DRG 392 ==
LOC: JER 14:55 → JERBED 21:34 → J5S 23:51
PROVIDERS: ADMIT Internal Medicine; ATTEND Internal Medicine
DX: K57.80 Diverticulitis of intestine, part unspecified, with perforation and abscess without bleeding (principal); E87.1 Hypo-osmolality and hyponatremia; I10 Essential (primary) hypertension; E87.5 Hyperkalemia; C44.202 Unspecified malignant neoplasm of skin of right ear and external auricular canal; E11.51 Type 2 diabetes mellitus with diabetic peripheral angiopathy without gangrene
CPT/HCPCS: 36415; 71045-TC-FY; 74176-TC; 74177-TC; 76705-TC; 80048; 80053; 81003; 82962; 83036; 83690; 84443; 84484; 85027; 85610; 85651; 93005; 93010; 99284-25

== ENCOUNTER → 2018-03-06 | Emergency (ER) | payer OTHER, BC ==
[~2018-03-06] MED LIST: ACETAMINOPHEN 325 MG TABLET (FP) ONE; ACETAMINOPHEN 325 MG TABLET (FP) PO ONE; DIPHTH,PERTUSS(ACELL),TET 0.5 ML DISP.SYRIN IM ONE
[2018-03-06 16:28] VITALS: BP 162/80; PULSE 62; TEMP 98.2; BMI 25.0
--- NOTE | 2018-03-06 16:46 | PDOC ---
History of Present Illness - General Chief Complaint: Injury Stated Complaint: FALL Time Seen by Provider: 03/06/18 16:42 - History of Present Illness Initial Comments: 03/06/18 16:44 82 yo M with h/o DM, and HTN, who p/w posterior head laceration s/p mechanical fall. Patient BIBA following fall at the gym, indoors when stepping off of a step. 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 Patient on ground 3 minutes, with superficial head bleeding controlled with compression. Denies LOC, neck trauma. Now with slight posterior headache, with no other complaints. Does not recall last tetanus. Denies h/o multiple falls, or AC use. Denies analgesia use. Patient denies back pain, neck pain/stiffness, vision change, hearing loss, tinnitus, N/V, F,C, CP, palpitations, SOB, urinary complaints, abdominal pain, diarrhea, hematuria, BPR, constipation, lightheadedness, weakness, sensory changes. PMHx: as noted above ROS: as noted Allergies:NKDA Past History - Past Medical History Allergies/Adverse Reactions: Allergies Allergy/AdvReac Type Severity Reaction Status Date / Time No Known Allergies Allergy Verified 03/06/18 16:23 Home Medications: Ambulatory Orders Aspirin [Bishnu Chewable] 81 mg PO DAILY 03/06/18 Carbidopa/Levodopa [Carbidopa-Levodopa 25-100 Tab] 1 each PO TID 03/06/18 Glimepiride [Amaryl -] 2 mg PO DAILY 03/06/18 Hydrochlorothiazide [Hctz -] 12.5 mg PO DAILY 03/06/18 Irbesartan [Avapro] 150 mg PO DAILY 03/06/18 Magnesium Oxide [Magnesium] 400 mg PO DAILY 03/06/18 Multivitamin/Iron/Folic Acid [Centrum Adults Tablet] 1 each PO DAILY 03/06/18 [place]-3/Dha/Epa/Fish Oil [Fish Oil 1,360 mg Softgel] 1 each PO DAILY 03/06/18 Anemia: No Asthma: No Cancer: Yes (skin rt ear) Cardiac Disorders: No CVA: No COPD: No CHF: No Dementia: No Diabetes: Yes (NIDDM) GI Disorders: No Disorders: No HTN: Yes Hypercholesterolemia: No Liver Disease: No Seizures: No Thyroid Disease: No - Surgical History Abdominal Surgery: No Appendectomy: No Cardiac Surgery: No Cholecystectomy: No Lung Surgery: No Neurologic Surgery: No - Suicide/Smoking/Psychosocial Hx Smoking History: Never smoked Have you smoked in the past 12 months: No Information on smoking cessation initiated: No Hx Alcohol Use: No Drug/Substance Use Hx: No Substance Use Type: None Hx Substance Use Treatment: No Review of Systems - Review of Systems Comments:: 03/06/18 16:45 GENERAL/CONSTITUTIONAL: No fever or chills. No weakness. HEAD, EYES, EARS, NOSE AND THROAT: No change in vision. No ear pain or discharge. No sore throat. CARDIOVASCULAR: No chest pain or shortness of breath RESPIRATORY: No cough, wheezing, or hemoptysis. GASTROINTESTINAL: No nausea, vomiting, diarrhea or constipation. GENITOURINARY: No dysuria, frequency, or change in urination. MUSCULOSKELETAL: No joint or muscle swelling or pain. No neck or back pain. SKIN: No rash NEUROLOGIC: + headache. No vertigo, loss of consciousness, or change in strength/sensation. ENDOCRINE: No increased thirst. No abnormal weight change HEMATOLOGIC/LYMPHATIC: No anemia, easy bleeding, or history of blood clots. ALLERGIC/IMMUNOLOGIC: No hives or skin allergy. *Physical Exam - Vital Signs Last Vital Signs Temp Pulse Resp BP Pulse Ox 98.2 F 62 18 162/80 100 03/06/18 16:23 03/06/18 16:23 03/06/18 16:23 03/06/18 16:23 03/06/18 16:23 - Physical Exam Comments: 03/06/18 16:45 GENERAL: Awake, alert, and fully oriented, in no acute distress HEAD: + Right sided linear, horizontal, posteriro/scalp occipital laceration 2 cm with gala visualization. minimal bleeding. No foreign body visualized. + slight left sided temporal abrasion 1 mm, closed. EYES: PERRLA, EOMI, sclera anicteric, conjunctiva clear ENT: Auricles normal inspection, hearing grossly normal, nares patent, oropharynx clear without exudates. Moist mucosa NECK: Normal ROM, supple, no lymphadenopathy, JVD, or masses LUNGS: No distress, speaks full sentences, clear to auscultation bilaterally HEART: Regular rate and rhythm, normal S1 and S2, no murmurs, rubs or gallops, peripheral pulses normal and equal bilaterally. ABDOMEN: Soft, nontender, normoactive bowel sounds. No guarding, no rebound. No masses EXTREMITIES : Normal inspection, Normal range of motion, no edema. No clubbing or cyanosis. NEUROLOGICAL: Cranial nerves II through XII grossly intact. Normal speech, normal gait, no focal sensorimotor deficits SKIN: Warm, Dry, normal turgor, no rashes or lesions noted Moderate Sedation - Procedure Monitoring Vital Signs: Procedure Monitoring Vital Signs Temperature 98.2 F 03/06/18 16:23 Pulse Rate 62 03/06/18 16:23 Respiratory Rate 18 03/06/18 16:23 Blood Pressure 162/80 03/06/18 16:23 O2 Sat by Pulse Oximetry (%) 100 03/06/18 16:23 Procedures - Laceration/Wound Repair Right Posterior Head Wound Length: to 2.5 cm Wound Explored: clean, no foreign body present, contaminated, foreign body removed Wound's Depth, Shape: superficial, linear Irrigated w/ Saline: Yes Betadine Prep: No Anesthesia: 1% Lidocaine Wound Debrided: minimal Wound Repaired With: [place] Layer Closure: No Medical Decision Making - Medical Decision Making 03/06/18 17:03 82 yo M with h/o DM, and HTN, who p/w head injury/posterior head laceration s/p mechanical fall. VSS, AF, A&Ox3, GCS 15. Asbent neuro deficits on physical exam. + Right sided linear, horizontal, post. occipital laceration 2 cm with gala visualization. No foreign bodies visualized. Denies AC use. Tdap not UTD. CTH r/o hemorrhage, hematoma, fracture. C SPINE NEG per NEXUS. No evidence of basilar skull frx. ( perioccipital ecchymosis, post auricular ecchymosis). Patient stable. Will control pain, reassess. Ed Course: CTH, Tylenol, Boostrix 03/06/18 17:07 03/06/18 18:45 CTH: chronic right cerebellar infarct. No evidence of acute intracranial pathology. 03/06/18 19:21 Wound repair with wing x 9 Patient advised to return to ED x 7-10 days for staple removal 03/06/18 20:04 Patient stable for d/c with return precautions. *DC/Admit/Observation/Transfer Diagnosis at time of Disposition: Fall (on) (from) other stairs and steps, initial encounter Laceration of head Qualifiers: Encounter type: initial encounter Location of open wound of head: scalp Foreign body presence: without foreign body Qualified Code(s): S01.01XA - Laceration without foreign body of scalp, initial encounter - Discharge Dispostion Condition at time of disposition: Stable Decision to Admit order: No - Referrals Referrals: Erick Marley MD [Primary Care Provider] - - Patient Instructions Printed Discharge Instructions: How to Prevent Falls, DI for Closed Head Injury Additional Instructions: Please return to the emergency department with any new or worsening symptoms or concerns. Please follow up with your primary care physician within 72 hours. Please return to emergency department in 7-10 days for staple removal. - Post Discharge Activity - Attestations Physician Attestion: 03/06/18 16:45 I attest to the information provided in this note.
--- NOTE | 2018-03-06 18:53 | PDOC ---
Attending Attestation - Resident Resident Name: Florentin Garzon - ED Attending Attestation I have performed the following: I have examined & evaluated the patient, The case was reviewed & discussed with the resident, I agree w/resident's findings & plan, Exceptions are as noted - HPI HPI: 03/06/18 19:05 The patient is a 82 year old male brought via EMS, with a significant past medical history of DM, HTN, CVA (R cerebeller c/b ataxia), ?parkinsons disease ( on carbidopa levodopa) who presents to the ED complaining of a head laceration after a fall today. He reports that he was at the gym on the pull down machine and was trying to let go of the weight slowly so that it would not make a loud noise, but the weights recoiled too quickly causing him to fell backwards. He reports hitting his head onto one of the weights on the way down. He denies any loss of consciousness. He notes that he laid on the ground for a few minutes before getting up and was able to control the bleeding from the laceration with compression. He does report a mild posterior headache. Denies other injuries, no back pain, neck pain, extremity pain. Denies dizziness The patient denies chest pain, shortness of breath and dizziness. Denies fever, chills, nausea, vomiting, diarrhea or constipation. Allergies: none Past surgical history: None reported Social History: No alcohol, tobacco or drug use reported - Physicial Exam PE: 03/06/18 18:52 agree with resident exam - Medical Decision Making 03/06/18 18:53 82yo M hx gait abnormality (seen by Dr. Thurman, found to have chronic R cerebellar CVA), HTN, NIDDM, ?parkinsons, on baby ASA presents to the ED with mechanical fall at the gym after prematurely letting go of the pulldown machine and falling backwards. Vitals with elevated BP, otherwise normal. Exam non focal. Tdap updated. CTH negative for acute pathology. Plan to irrigate head lac and repair with wing. Pt well appearing, anticipate DC. 03/06/18 21:53 Lac repaired Pt remains well appearing, requests DC home Wing to be removed in 7-10 days to take him home I discussed the physical exam findings, ancillary test results and final diagnoses with the patient. I answered all of the patient's questions. The patient was satisfied with the care received and felt comfortable with the discharge plan and treatment plan. The patient will call their primary care physician within 24 hours to arrange follow-up and will return to the Emergency Department with any new, persistent or worsening symptoms.
== END | disposition home or self-care (01) ==
LOC: JER 16:13
PROC: 3E0234Z Introduction of Serum, Toxoid and Vaccine into Muscle, Percutaneous Approach (ICD-10-PCS; principal; 2018-03-06)
PROC: 0HQ0XZZ Repair Scalp Skin, External Approach (ICD-10-PCS; 2018-03-06)
DX: S01.01XA Laceration without foreign body of scalp, initial encounter (principal); W31.89XA Contact with other specified machinery, initial encounter; Y93.B1 Activity, exercise machines primarily for muscle strengthening; Y92.39 Other specified sports and athletic area as the place of occurrence of the external cause; Y99.8 Other external cause status; I10 Essential (primary) hypertension; E11.9 Type 2 diabetes mellitus without complications; Z79.84 Long term (current) use of oral hypoglycemic drugs
CPT/HCPCS: 70450-TC; 90715; 99282-25

== ENCOUNTER 2018-03-13 09:34 | Emergency (ER) | payer OTHER, BC ==
[2018-03-13 09:45] VITALS: BP 148/57; PULSE 63; TEMP 98.2; BMI 24.5
--- NOTE | 2018-03-13 10:02 | PDOC ---
Suture Removal/Wound Check HPI - History of Present Illness Chief Complaint: Suture/Staple Removal(Here) Stated Complaint: Suture/Staple Removal(Here) Time Seen by Provider: 03/13/18 10:00 History Source: Yes: Patient Exam Limitations: Yes: Clinical Condition Treated at: [facility] Date of Last ED visit: 03/06/18 - Previous ED Treatment Type of procedure performed on last visit: Yes: Laceration Repair Tetanus Immunization: Yes: Up to Date - Onset of Previous Treatment Date of Occurence: 03/06/18 Select one - (for the option above): Weeks (1 week) Past History - Past Medical History Allergies/Adverse Reactions: Allergies Allergy/AdvReac Type Severity Reaction Status Date / Time No Known Allergies Allergy Verified 03/06/18 16:23 Home Medications: Ambulatory Orders Aspirin [Bishnu Chewable] 81 mg PO DAILY 03/06/18 Carbidopa/Levodopa [Carbidopa-Levodopa 25-100 Tab] 1 each PO TID 03/06/18 Glimepiride [Amaryl -] 2 mg PO DAILY 03/06/18 Hydrochlorothiazide [Hctz -] 12.5 mg PO DAILY 03/06/18 Irbesartan [Avapro] 150 mg PO DAILY 03/06/18 Magnesium Oxide [Magnesium] 400 mg PO DAILY 03/06/18 Multivitamin/Iron/Folic Acid [Centrum Adults Tablet] 1 each PO DAILY 03/06/18 [place]-3/Dha/Epa/Fish Oil [Fish Oil 1,360 mg Softgel] 1 each PO DAILY 03/06/18 Anemia: No Asthma: No Cancer: Yes (skin rt ear) Cardiac Disorders: No CVA: No COPD: No CHF: No Dementia: No Diabetes: Yes (NIDDM) GI Disorders: No Disorders: No HTN: Yes Hypercholesterolemia: No Liver Disease: No Seizures: No Thyroid Disease: No - Surgical History Abdominal Surgery: No Appendectomy: No Cardiac Surgery: No Cholecystectomy: No Lung Surgery: No Neurologic Surgery: No - Immunization History Immunization Up to Date: Yes - Suicide/Smoking/Psychosocial Hx Smoking History: Never smoked Have you smoked in the past 12 months: No Hx Alcohol Use: No Drug/Substance Use Hx: No Substance Use Type: None Hx Substance Use Treatment: No Suture Removal/Wound Check PE - Physical Exam Laceration/Wound Check Symptoms: reports: None Pain Intensity: 0 Current Severity Level: None Maximum Severity Level: None Location of Laceration/Wound: left: Head (posterior scalp) Pain Radiation: None *Review of Systems - Review of Systems Able to Perform ROS?: Yes Constitutional: No: Weakness HEENTM: No: Eye Pain, Blurred Vision, Recent change in vision, Double Vision Respiratory: No: Symptoms reported Cardiac (ROS): No: Symptoms Reported ABD/GI: No: Symptoms Reported Neurological: No: Headache, Weakness, Unsteady Gait, Ataxia, Dizziness All Other Systems: Reviewed and Negative *Physical Exam - Vital Signs Last Vital Signs Temp Pulse Resp BP Pulse Ox 98.2 F 63 16 148/57 L 100 03/13/18 09:42 03/13/18 09:42 03/13/18 09:42 03/13/18 09:42 03/13/18 09:42 - Physical Exam General Appearance: Yes: Nourished, Appropriately Dressed. No: Apparent Distress HEENT: positive: SARITHA, Normal ENT Inspection, Pharynx Normal Neck: positive: Supple Respiratory/Chest: positive: Lungs Clear. negative: Respiratory Distress, Accessory Muscle Use Cardiovascular: positive: Regular Rhythm, Regular Rate, S1, S2 Musculoskeletal: positive: Normal Inspection Extremity: positive: Normal Inspection Integumentary: positive: Normal Color, Other (well healed 5cm laceration with [address]) Neurologic: positive: Fully Oriented, Alert, Normal Mood/Affect, Normal Response Moderate Sedation - Procedure Monitoring Vital Signs: Procedure Monitoring Vital Signs Temperature 98.2 F 03/13/18 09:42 Pulse Rate 63 03/13/18 09:42 Respiratory Rate 16 03/13/18 09:42 Blood Pressure 148/57 L 03/13/18 09:42 O2 Sat by Pulse Oximetry (%) 100 03/13/18 09:42 Medical Decision Making - Medical Decision Making 03/13/18 10:13 Patient with no significant past medical history present for staple removal status post fall a week ago causing laceration to the scalp. Neuro exam was normal. Exam shows 5 cm laceration with [address] [place] removed without difficulty. Wound healing well with no evidence of wound infection. Patient advice on home wound care and stable for discharge. *DC/Admit/Observation/Transfer Diagnosis at time of Disposition: Laceration of head Qualifiers: Encounter type: subsequent encounter Location of open wound of head: scalp Foreign body presence: without foreign body Qualified Code(s): S01.01XD - Laceration without foreign body of scalp, subsequent encounter - Discharge Dispostion Disposition: HOME Condition at time of disposition: Stable Decision to Admit order: No - Referrals Referrals: Erick Marley MD [Primary Care Provider] - - Patient Instructions Printed Discharge Instructions: DI for Closed Head Injury - Post Discharge Activity
== END 2018-03-13 10:14 | disposition home or self-care (01) ==
LOC: JERFT 09:34
DX: Z48.02 Encounter for removal of sutures (principal)
CPT/HCPCS: 99281-25

== ENCOUNTER 2023-11-07 03:23 | Inpatient (IN) | payer OTHER ==
[2023-11-07 05:05] LABS: BASO % 0.1 % (0-2.0); EOS % 0.1 % (0-4.5); HEMATOCRIT 36.5 % (35.4-49); HEMOGLOBIN 13.2 GM/dL (11.7-16.9); LYMPH % 9.5 % (8-40); MCH 31.5 pg (25.7-33.7); MEAN CELL VOLUME 87.4 fl (80-96); MEAN PLT VOLUME 8.1 fl (7.5-11.1); MONO % 10.7 % (3.8-10.2); NEUT % 79.6 % (42.8-82.8); PLATELET COUNT 186 10^3/uL (134-434); RBC 4.18 M/mm3 (4.00-5.60); RDW 13.4 % (11.9-15.9); WHITE BLOOD COUNT 8.8 K/mm3 (4.0-10.0)
[2023-11-07 05:12] LABS: INR 0.98 (0.83-1.09); PROTHROMBIN TIME (PATIENT) 11.3 SEC (9.7-13.0)
[2023-11-07 05:24] LABS: POTASSIUM 3.9 mmol/L (3.5-5.1)
[2023-11-07 05:26] LABS: CALCIUM 8.5 mg/dL (8.5-10.1)
[2023-11-07 05:27] LABS: ALBUMIN 3.4 g/dl (3.4-5.0); BLOOD UREA NITROGEN 21.6 mg/dL (7-18)
[2023-11-07 05:30] LABS: CREATININE 1.1 mg/dL (0.55-1.3)
[2023-11-07 05:31] LABS: BILIRUBIN,TOTAL 0.9 mg/dL (0.2-1); TOT PROT 6.2 g/dl (6.4-8.2)
[2023-11-07] MEDS: SODIUM CHLORIDE 0.9% 500 ML INFUS.BAG IV ONE (05:45)
[2023-11-07 09:36] LABS: PH,URINE 7.5 (5.0-8.0); URINE APPEARANCE CLEAR; URINE BILIRUBIN NEGATIVE (NEGATIVE); URINE COLOR YELLOW; URINE GLUCOSE (UA) 1+ (NEGATIVE); URINE KETONE NEGATIVE (NEGATIVE); URINE LEUK ESTERASE NEGATIVE (NEGATIVE); URINE NITRITE NEGATIVE (NEGATIVE); URINE PROTEIN TRACE (NEGATIVE); URINE UROBILINOGEN 0.2 mg/dL (0.2-1.0)
[2023-11-07] MEDS ORDERED: LOSARTAN POTASSIUM 50 MG TABLET ONE (10:03)
[2023-11-07] MEDS ORDERED: ASPIRIN 81 MG CHEWABLE TABLETS ONE (10:04)
[2023-11-07] MEDS: LOSARTAN POTASSIUM 50 MG TABLET PO SCH (10:04)
[2023-11-07] MEDS: SODIUM CHLORIDE 1,000 ML IV SCH ×2 (10:04→19:38)
[2023-11-07] MEDS: ASPIRIN 81 MG CHEWABLE TABLETS PO SCH (10:04)
[2023-11-07] MEDS: INSULIN ASPART SLIDING SCALE (NOVOLOG) 1 VIAL SQ SCH (12:00)
[2023-11-07] MEDS ORDERED: ACETAMINOPHEN INJECTION 100 ML IVPB ONE (13:17)
[2023-11-07] MEDS: ACETAMINOPHEN 1000 MG/100 ML BAG IVPB PRN (13:21)
[2023-11-07] MEDS ORDERED: INSULIN ASPART SLIDING SCALE (NOVOLOG) 1 VIAL SQ ONE (18:14)
[2023-11-08 08:33] LABS: BASO % 0.2 % (0-2.0); EOS % 2.2 % (0-4.5); HEMATOCRIT 36.9 % (35.4-49); HEMOGLOBIN 13.1 GM/dL (11.7-16.9); LYMPH % 22.9 % (8-40); MCH 31.2 pg (25.7-33.7); MCHC 35.5 g/dl (32.0-35.9); MEAN CELL VOLUME 87.9 fl (80-96); MEAN PLT VOLUME 8.2 fl (7.5-11.1); MONO % 13.4 % (3.8-10.2); NEUT % 61.3 % (42.8-82.8); PLATELET COUNT 192 10^3/uL (134-434); RDW 13.1 % (11.9-15.9); WHITE BLOOD COUNT 5.8 K/mm3 (4.0-10.0)
[2023-11-08 08:38] LABS: POTASSIUM 3.6 mmol/L (3.5-5.1)
[2023-11-08 08:45] LABS: ALBUMIN 3.3 g/dl (3.4-5.0); BLOOD UREA NITROGEN 15.7 mg/dL (7-18); CALCIUM 8.1 mg/dL (8.5-10.1); MAGNESIUM 2.1 mg/dL (1.8-2.4)
[2023-11-08 08:46] LABS: BILIRUBIN,TOTAL 0.8 mg/dL (0.2-1)
[2023-11-08 08:47] LABS: TOT PROT 5.9 g/dl (6.4-8.2)
[2023-11-08 08:49] LABS: CREATININE 0.9 mg/dL (0.55-1.3); PHOSPHOROUS 2.4 mg/dL (2.5-4.9)
[2023-11-08] MEDS: LOSARTAN POTASSIUM 50 MG TABLET PO SCH (09:14)
[2023-11-08] MEDS ORDERED: INSULIN ASPART SLIDING SCALE (NOVOLOG) 1 VIAL SQ ONE ×2 (11:31→16:52)
[2023-11-08] MEDS: HEPARIN NA (PORCINE) 5,000 UNITS/ML 1ML VIAL SQ SCH (13:06)
[2023-11-08 19:36] VITALS: BMI 22.6
[2023-11-09 07:59] LABS: POTASSIUM 3.6 mmol/L (3.5-5.1)
[2023-11-09 08:04] LABS: ALBUMIN 3.2 g/dl (3.4-5.0); BLOOD UREA NITROGEN 18.8 mg/dL (7-18); CALCIUM 8.1 mg/dL (8.5-10.1)
[2023-11-09 08:08] LABS: BILIRUBIN,TOTAL 0.6 mg/dL (0.2-1); TOT PROT 5.9 g/dl (6.4-8.2)
[2023-11-09] MEDS: SODIUM CHLORIDE 1 GM TABLET PO SCH (14:41)
[2023-11-09] MEDS: POLYETHYLENE GLYCOL (HEALTHYLAX) 3350 17 GM PACKET PO SCH (17:25)
[2023-11-09] MEDS: ACETAMINOPHEN 325 MG TABLET (FP) PO PRN (17:25)
[2023-11-09] MEDS ORDERED: INSULIN ASPART SLIDING SCALE (NOVOLOG) 1 VIAL SQ ONE (17:59)
[2023-11-09] MEDS: amLODIPine BESYLATE 5 MG TABLET (FP) PO ONE (22:32)
[2023-11-10] MEDS: LOSARTAN POTASSIUM 50 MG TABLET PO ONE (06:31)
[2023-11-10 07:43] VITALS: RESP 20
[2023-11-10 10:03] LABS: POTASSIUM 3.8 mmol/L (3.5-5.1)
[2023-11-10 10:06] LABS: CALCIUM 8.4 mg/dL (8.5-10.1)
[2023-11-10 10:07] LABS: ALBUMIN 3.2 g/dl (3.4-5.0); BLOOD UREA NITROGEN 16.8 mg/dL (7-18)
[2023-11-10 10:11] LABS: BILIRUBIN,TOTAL 0.7 mg/dL (0.2-1); TOT PROT 6.2 g/dl (6.4-8.2)
[2023-11-10 10:17] VITALS: BP 125/72; PULSE 80; TEMP 97.7
[2023-11-10] MEDS ORDERED: SODIUM CHLORIDE 1 GM TABLET PO SCH (22:00)
== END 2023-11-10 14:54 | disposition home or self-care (01) | DRG 641 ==
LOC: JER 03:23 → JERBED 08:35 → J8W 16:37
PROVIDERS: ADMIT Internal Medicine; ATTEND Internal Medicine
DX: E87.1 Hypo-osmolality and hyponatremia (principal); E11.9 Type 2 diabetes mellitus without complications; M54.50 Low back pain, unspecified; R29.6 Repeated falls; R41.82 Altered mental status, unspecified; S70.02XA Contusion of left hip, initial encounter; S70.01XA Contusion of right hip, initial encounter; W18.30XA Fall on same level, unspecified, initial encounter; Y92.098 Other place in other non-institutional residence as the place of occurrence of the external cause; Y99.9 Unspecified external cause status
CPT/HCPCS: 36415; 70450-TC; 71045-TC-FY; 72125-TC; 72170-TC-FY; 80053; 81003; 82436; 82962; 83735; 83930; 83935; 84100; 84133; 84300; 84443; 84484; 85025; 85610; 85730; 86780; 87086; 87899; 93005; 93010; 97116-GP; 97161-GP; 99285-25; J0131; J1644

== ENCOUNTER 2023-11-11 16:16 | Inpatient (IN) | payer OTHER ==
[2023-11-11 17:50] LABS: BASO % 0.3 % (0-2.0); EOS % 0.4 % (0-4.5); HEMATOCRIT 41.1 % (35.4-49); HEMOGLOBIN 14.2 GM/dL (11.7-16.9); LYMPH % 14.3 % (8-40); MCH 31.2 pg (25.7-33.7); MCHC 34.5 g/dl (32.0-35.9); MEAN CELL VOLUME 90.4 fl (80-96); MEAN PLT VOLUME 7.5 fl (7.5-11.1); PLATELET COUNT 215 10^3/uL (134-434); RBC 4.54 M/mm3 (4.00-5.60); RDW 13.3 % (11.9-15.9); WHITE BLOOD COUNT 7.6 K/mm3 (4.0-10.0)
[2023-11-11 18:01] LABS: PROTHROMBIN TIME (PATIENT) 11.3 SEC (9.7-13.0)
[2023-11-11 18:04] LABS: ACTIVATED PTT 28.1 SECONDS (25.2-36.5)
[2023-11-11 18:09] LABS: POTASSIUM 5.2 mmol/L (3.5-5.1)
[2023-11-11 18:11] LABS: ALBUMIN 3.5 g/dl (3.4-5.0); BLOOD UREA NITROGEN 31.3 mg/dL (7-18); MAGNESIUM 2.2 mg/dL (1.8-2.4)
[2023-11-11 18:14] LABS: PHOSPHOROUS 3.9 mg/dL (2.5-4.9)
[2023-11-11 18:15] LABS: CREATININE 1.4 mg/dL (0.55-1.3)
[2023-11-11 18:16] LABS: BILIRUBIN,TOTAL 0.6 mg/dL (0.2-1); TOT PROT 6.5 g/dl (6.4-8.2)
[2023-11-11] MEDS: SODIUM CHLORIDE 1,000 ML IV STA (18:41)
[2023-11-11 21:43] LABS: EPI CELLS 2 /uL (0-25.1); HYALINE CASTS 0 /uL (0-3.1); URINE APPEARANCE CLEAR; URINE BACTERIA 1875 /uL (0-1359); URINE BILIRUBIN NEGATIVE (NEGATIVE); URINE COLOR YELLOW; URINE GLUCOSE (UA) NEGATIVE (NEGATIVE); URINE KETONE 1+ (NEGATIVE); URINE LEUK ESTERASE NEGATIVE (NEGATIVE); URINE NITRITE NEGATIVE (NEGATIVE); URINE PROTEIN 1+ (NEGATIVE); URINE RBC 5 /uL (0-23.9); URINE UROBILINOGEN 0.2 mg/dL (0.2-1.0); URINE WBC 32 /uL (0-25.8)
[2023-11-12 07:17] LABS: BASO % 0.3 % (0-2.0); EOS % 0.9 % (0-4.5); HEMATOCRIT 39.1 % (35.4-49); HEMOGLOBIN 13.7 GM/dL (11.7-16.9); LYMPH % 23.6 % (8-40); MCH 31.3 pg (25.7-33.7); MCHC 34.9 g/dl (32.0-35.9); MEAN CELL VOLUME 89.8 fl (80-96); MEAN PLT VOLUME 7.7 fl (7.5-11.1); NEUT % 65.2 % (42.8-82.8); PLATELET COUNT 211 10^3/uL (134-434); RBC 4.36 M/mm3 (4.00-5.60); RDW 13.3 % (11.9-15.9)
[2023-11-12 08:54] LABS: BLOOD UREA NITROGEN 26.4 mg/dL (7-18); CALCIUM 8.6 mg/dL (8.5-10.1); CREATININE 1.1 mg/dL (0.55-1.3); POTASSIUM 4.8 mmol/L (3.5-5.1)
[2023-11-12] MEDS ORDERED: amLODIPine BESYLATE 5 MG TABLET (FP) ONE (10:50)
[2023-11-12] MEDS ORDERED: ASPIRIN 81 MG CHEWABLE TABLETS ONE (10:50)
[2023-11-12] MEDS: ASPIRIN 81 MG CHEWABLE TABLETS PO SCH (11:22)
[2023-11-12] MEDS: amLODIPine BESYLATE 5 MG TABLET (FP) PO SCH (11:22)
[2023-11-13] MEDS: LOSARTAN POTASSIUM 50 MG TABLET PO SCH (10:25)
[2023-11-13] MEDS: amLODIPine BESYLATE 10 MG TABLET (FP) PO SCH (10:25)
[2023-11-13] MEDS: INSULIN (LEVEMIR) 100 UNITS/ML UNITS SQ SCH (11:08)
[2023-11-14] MEDS: SODIUM CHLORIDE 1 GM TABLET PO SCH (15:56)
[2023-11-15 10:14] LABS: BASO % 0.3 % (0-2.0); EOS % 1.2 % (0-4.5); HEMOGLOBIN 14.3 GM/dL (11.7-16.9); INR 1.03 (0.83-1.09); LYMPH % 21.5 % (8-40); MCH 31.5 pg (25.7-33.7); MCHC 35.8 g/dl (32.0-35.9); MEAN CELL VOLUME 87.9 fl (80-96); MEAN PLT VOLUME 7.6 fl (7.5-11.1); MONO % 9.9 % (3.8-10.2); NEUT % 67.1 % (42.8-82.8); PLATELET COUNT 224 10^3/uL (134-434); PROTHROMBIN TIME (PATIENT) 11.6 SEC (9.7-13.0); RBC 4.55 M/mm3 (4.00-5.60); RDW 13.4 % (11.9-15.9); WHITE BLOOD COUNT 6.9 K/mm3 (4.0-10.0)
[2023-11-15 10:31] LABS: POTASSIUM 3.7 mmol/L (3.5-5.1)
[2023-11-15 10:47] LABS: BLOOD UREA NITROGEN 25.8 mg/dL (7-18)
[2023-11-15 10:49] LABS: CALCIUM 8.9 mg/dL (8.5-10.1)
[2023-11-15 10:50] LABS: ALBUMIN 3.3 g/dl (3.4-5.0)
[2023-11-15 10:53] LABS: BILIRUBIN,TOTAL 0.8 mg/dL (0.2-1)
[2023-11-15 10:54] LABS: TOT PROT 6.3 g/dl (6.4-8.2)
[2023-11-15] MEDS: LIDOCAINE 1%/EPI 1:100000 (50 ML MULTI DOSE VIAL) NR ONE (12:57)
[2023-11-15 14:41] LABS: BF GLUCOSE (CSF ONLY) 102 mg/dL (40-70)
[2023-11-15 14:43] LABS: CSF COLOR COLORLESS (COLORLESS); CSF WBC 5 mm3 (0-5)
[2023-11-15 14:44] LABS: CSF APPEARANCE CLEAR (CLEAR)
[2023-11-15] MEDS ORDERED: traMADol HCL 50 MG TABLET PO PRN ×2 (15:20→17:34)
[2023-11-15] MEDS: ACETAMINOPHEN 500 MG TABLET (FP) PO SCH ×2 (15:54→23:27)
[2023-11-15] MEDS: MUPIROCIN 2% TOPICAL OINTMENT FOR DECOLONIZATION NS SCH (21:28)
[2023-11-15] MEDS: HEPARIN NA (PORCINE) 5,000 UNITS/ML 1ML VIAL SQ SCH (21:29)
[2023-11-15] MEDS: CHLORHEXIDINE GLUCONATE 4% CLEANSER FOR DECOLONIZATION TP SCH (21:29)
[2023-11-15] MEDS: INSULIN ASPART SLIDING SCALE (NOVOLOG) 1 VIAL SQ SCH (21:30)
[2023-11-15] MEDS: INSULIN (LEVEMIR) 100 UNITS/ML UNITS SQ SCH (21:30)
[2023-11-16 07:24] LABS: HEMATOCRIT 42.6 % (35.4-49); HEMOGLOBIN 14.4 GM/dL (11.7-16.9); MCH 30.8 pg (25.7-33.7); MCHC 33.7 g/dl (32.0-35.9); MEAN CELL VOLUME 91.4 fl (80-96); MEAN PLT VOLUME 7.8 fl (7.5-11.1); PLATELET COUNT 244 10^3/uL (134-434); RBC 4.66 M/mm3 (4.00-5.60); RDW 13.8 % (11.9-15.9); WHITE BLOOD COUNT 9.3 K/mm3 (4.0-10.0)
[2023-11-16 07:35] LABS: POTASSIUM 4.5 mmol/L (3.5-5.1)
[2023-11-16 07:39] LABS: BLOOD UREA NITROGEN 35.4 mg/dL (7-18)
[2023-11-16 07:40] LABS: CALCIUM 9.5 mg/dL (8.5-10.1); MAGNESIUM 2.3 mg/dL (1.8-2.4)
[2023-11-16 07:43] LABS: CREATININE 1.4 mg/dL (0.55-1.3); PHOSPHOROUS 4.9 mg/dL (2.5-4.9)
[2023-11-16 07:48] LABS: N-TERMINAL BNP 46.5 pg/ml (5-450)
[2023-11-16] MEDS: ASPIRIN 81 MG CHEWABLE TABLETS PO SCH (09:25)
[2023-11-16] MEDS: LOSARTAN POTASSIUM 50 MG TABLET PO SCH (09:25)
[2023-11-16] MEDS: amLODIPine BESYLATE 10 MG TABLET (FP) PO SCH (09:25)
[2023-11-16] MEDS: SODIUM CHLORIDE 1 GM TABLET PO SCH (11:38)
[2023-11-16] MEDS: CEFAZOLIN 1 GM in DEXTROSE 5%-WATER - 50 ML IVPB SCH (12:53)
[2023-11-16] MEDS: SODIUM CHLORIDE 1,000 ML IV SCH (13:00)
[2023-11-16 13:46] LABS: BF GLUCOSE (CSF ONLY) 113 mg/dL (40-70)
[2023-11-16 13:49] LABS: CSF COLOR COLORLESS (COLORLESS)
[2023-11-16 13:50] LABS: CSF APPEARANCE TURBID (CLEAR)
[2023-11-16 14:40] LABS: CSF WBC 440 mm3 (0-5)
[2023-11-16 16:29] LABS: BF GLUCOSE (CSF ONLY) 134 mg/dL (40-70)
[2023-11-16 17:01] LABS: CSF APPEARANCE CLEAR (CLEAR); CSF COLOR YELLOW (COLORLESS)
[2023-11-16 17:09] LABS: CSF WBC 60 mm3 (0-5)
[2023-11-17 07:33] LABS: BASO % 0.3 % (0-2.0); EOS % 1.2 % (0-4.5); HEMATOCRIT 40.2 % (35.4-49); HEMOGLOBIN 13.9 GM/dL (11.7-16.9); LYMPH % 26.6 % (8-40); MCH 31.2 pg (25.7-33.7); MCHC 34.5 g/dl (32.0-35.9); MEAN CELL VOLUME 90.4 fl (80-96); MEAN PLT VOLUME 7.6 fl (7.5-11.1); MONO % 10.3 % (3.8-10.2); NEUT % 61.6 % (42.8-82.8); PLATELET COUNT 220 10^3/uL (134-434); RBC 4.45 M/mm3 (4.00-5.60); RDW 13.6 % (11.9-15.9)
[2023-11-17 07:36] LABS: POTASSIUM 3.9 mmol/L (3.5-5.1)
[2023-11-17 07:41] LABS: ALBUMIN 3.2 g/dl (3.4-5.0); CALCIUM 8.9 mg/dL (8.5-10.1)
[2023-11-17 07:42] LABS: BLOOD UREA NITROGEN 31.2 mg/dL (7-18)
[2023-11-17 07:45] LABS: BILIRUBIN,TOTAL 0.8 mg/dL (0.2-1); PHOSPHOROUS 3.2 mg/dL (2.5-4.9); TOT PROT 6.2 g/dl (6.4-8.2)
[2023-11-17] MEDS: CEFTRIAXONE 2 GM in DEXTROSE 5%-WATER 100 ML IVPB SCH (09:08)
[2023-11-17] MEDS: VANCOMYCIN/WATER FOR INJ (PEG) 1 GM/200 ML BAG IVPB ONE (09:50)
[2023-11-17] MEDS: CEFEPIME 2 GM in DEXTROSE 5%-WATER 100 ML IVPB ONE (12:31)
[2023-11-17 13:30] VITALS: BMI 27.1
[2023-11-17 17:14] LABS: EPI CELLS 8 /uL (0-25.1); HYALINE CASTS 1 /uL (0-3.1); PH,URINE 5.5 (5.0-8.0); URINE APPEARANCE CLEAR; URINE BACTERIA 11 /uL (0-1359); URINE BILIRUBIN NEGATIVE (NEGATIVE); URINE COLOR YELLOW; URINE GLUCOSE (UA) TRACE (NEGATIVE); URINE KETONE NEGATIVE (NEGATIVE); URINE LEUK ESTERASE NEGATIVE (NEGATIVE); URINE NITRITE NEGATIVE (NEGATIVE); URINE PROTEIN 1+ (NEGATIVE); URINE RBC 13 /uL (0-23.9); URINE UROBILINOGEN 0.2 mg/dL (0.2-1.0); URINE WBC 26 /uL (0-25.8)
[2023-11-17] MEDS ORDERED: traMADol HCL 50 MG TABLET PO PRN (18:00)
[2023-11-17] MEDS: CEFEPIME 2 GM in DEXTROSE 5%-WATER 100 ML IVPB SCH (21:09)
[2023-11-17] MEDS ORDERED: CEFEPIME HCL 2 GM VIAL (RESTRICTED TO ID) IVPB SCH (22:00)
[2023-11-17] MEDS ORDERED: CEFEPIME 2 GM in DEXTROSE 5%-WATER 100 ML IVPB ONE (22:00)
[2023-11-18 06:57] LABS: POTASSIUM 4.2 mmol/L (3.5-5.1)
[2023-11-18 06:59] LABS: CALCIUM 8.5 mg/dL (8.5-10.1)
[2023-11-18 07:00] LABS: BLOOD UREA NITROGEN 33.8 mg/dL (7-18); MAGNESIUM 2.1 mg/dL (1.8-2.4)
[2023-11-18 07:03] LABS: CREATININE 1.1 mg/dL (0.55-1.3); PHOSPHOROUS 3.5 mg/dL (2.5-4.9)
[2023-11-18 07:36] LABS: BASO % 0.4 % (0-2.0); EOS % 1.7 % (0-4.5); HEMATOCRIT 40.7 % (35.4-49); HEMOGLOBIN 14.1 GM/dL (11.7-16.9); LYMPH % 25.9 % (8-40); MCH 31.4 pg (25.7-33.7); MCHC 34.5 g/dl (32.0-35.9); MEAN PLT VOLUME 7.9 fl (7.5-11.1); MONO % 9.8 % (3.8-10.2); NEUT % 62.2 % (42.8-82.8); PLATELET COUNT 190 10^3/uL (134-434); RBC 4.47 M/mm3 (4.00-5.60); RDW 13.6 % (11.9-15.9)
[2023-11-18] MEDS: VANCOMYCIN/WATER FOR INJ (PEG) 1,000 MG/200 ML BAG IVPB SCH (09:45)
[2023-11-19 07:08] LABS: BASO % 0.5 % (0-2.0); EOS % 1.7 % (0-4.5); HEMATOCRIT 39.2 % (35.4-49); HEMOGLOBIN 13.5 GM/dL (11.7-16.9); LYMPH % 23.1 % (8-40); MCH 31.1 pg (25.7-33.7); MCHC 34.3 g/dl (32.0-35.9); MEAN CELL VOLUME 90.8 fl (80-96); MEAN PLT VOLUME 8.3 fl (7.5-11.1); MONO % 10.1 % (3.8-10.2); NEUT % 64.6 % (42.8-82.8); PLATELET COUNT 206 10^3/uL (134-434); RBC 4.32 M/mm3 (4.00-5.60); RDW 13.8 % (11.9-15.9); WHITE BLOOD COUNT 6.6 K/mm3 (4.0-10.0)
[2023-11-19 07:20] LABS: POTASSIUM 4.3 mmol/L (3.5-5.1)
[2023-11-19 07:23] LABS: CALCIUM 8.7 mg/dL (8.5-10.1)
[2023-11-19 07:24] LABS: BLOOD UREA NITROGEN 36.5 mg/dL (7-18); MAGNESIUM 2.1 mg/dL (1.8-2.4)
[2023-11-19 07:28] LABS: PHOSPHOROUS 3.7 mg/dL (2.5-4.9)
[2023-11-19 07:29] LABS: BILIRUBIN,TOTAL 0.7 mg/dL (0.2-1); TOT PROT 6.1 g/dl (6.4-8.2)
[2023-11-20] MEDS ORDERED: INSULIN (LEVEMIR) 100 UNITS/ML UNITS SQ ONE (18:09)
[2023-11-20] MEDS ORDERED: INSULIN ASPART SLIDING SCALE (NOVOLOG) 1 VIAL SQ ONE (18:09)
[2023-11-20] MEDS ORDERED: CEFEPIME 2 GM in DEXTROSE 5%-WATER 100 ML IVPB ONE (23:05)
[2023-11-21] MEDS: HEPARIN NA (PORCINE) 5,000 UNITS/ML 1ML VIAL SQ SCH (05:17)
[2023-11-21] MEDS: INSULIN (LEVEMIR) 100 UNITS/ML UNITS SQ SCH (06:04)
[2023-11-21] MEDS: INSULIN ASPART SLIDING SCALE (NOVOLOG) 1 VIAL SQ SCH (06:04)
[2023-11-21 10:10] LABS: BASO % 0.6 % (0-2.0); EOS % 1.7 % (0-4.5); HEMATOCRIT 35.9 % (35.4-49); HEMOGLOBIN 12.4 GM/dL (11.7-16.9); LYMPH % 26.9 % (8-40); MCH 31.1 pg (25.7-33.7); MCHC 34.5 g/dl (32.0-35.9); MEAN CELL VOLUME 90.3 fl (80-96); MEAN PLT VOLUME 8.4 fl (7.5-11.1); MONO % 11.3 % (3.8-10.2); NEUT % 59.5 % (42.8-82.8); PLATELET COUNT 216 10^3/uL (134-434); RBC 3.98 M/mm3 (4.00-5.60); RDW 13.8 % (11.9-15.9); WHITE BLOOD COUNT 6.2 K/mm3 (4.0-10.0)
[2023-11-21 10:23] LABS: POTASSIUM 4.1 mmol/L (3.5-5.1)
[2023-11-21 10:30] LABS: ALBUMIN 2.8 g/dl (3.4-5.0); CALCIUM 8.8 mg/dL (8.5-10.1)
[2023-11-21 10:31] LABS: BLOOD UREA NITROGEN 42.7 mg/dL (7-18)
[2023-11-21 10:33] LABS: CREATININE 1.1 mg/dL (0.55-1.3)
[2023-11-21 10:35] LABS: BILIRUBIN,TOTAL 0.7 mg/dL (0.2-1); TOT PROT 5.8 g/dl (6.4-8.2)
[2023-11-21] MEDS: LOSARTAN POTASSIUM 50 MG TABLET PO SCH (11:22)
[2023-11-21] MEDS: amLODIPine BESYLATE 10 MG TABLET (FP) PO SCH (11:22)
[2023-11-21] MEDS: ASPIRIN 81 MG CHEWABLE TABLETS PO SCH (11:22)
[2023-11-21] MEDS: CEFEPIME 2 GM in DEXTROSE 5%-WATER 100 ML IVPB SCH (11:23)
[2023-11-21] MEDS ORDERED: CHLORHEXIDINE GLUCONATE 4% CLEANSER FOR DECOLONIZATION TP SCH (22:00)
[2023-11-22] MEDS: traMADol HCL 50 MG TABLET PO PRN (21:44)
[2023-11-23] MEDS ORDERED: ACETAMINOPHEN 1000 MG/100 ML BAG IVPB PRN (13:04)
[2023-11-23] MEDS: INSULIN (LEVEMIR) 100 UNITS/ML UNITS SQ SCH (21:30)
[2023-11-24] MEDS: AMINO ACIDS 4.25%/D5W 1,000 ML IV SCH (15:26)
[2023-11-24 15:39] LABS: BASO % 0.3 % (0-2.0); EOS % 0.5 % (0-4.5); MCHC 34.2 g/dl (32.0-35.9); MEAN CELL VOLUME 90.7 fl (80-96); MEAN PLT VOLUME 8.4 fl (7.5-11.1); MONO % 9.8 % (3.8-10.2); NEUT % 75.4 % (42.8-82.8); PLATELET COUNT 239 10^3/uL (134-434); RBC 4.19 M/mm3 (4.00-5.60); WHITE BLOOD COUNT 8.3 K/mm3 (4.0-10.0)
[2023-11-24 15:56] LABS: POTASSIUM 4.6 mmol/L (3.5-5.1)
[2023-11-24 15:58] LABS: CALCIUM 9.1 mg/dL (8.5-10.1)
[2023-11-24 15:59] LABS: ALBUMIN 2.8 g/dl (3.4-5.0)
[2023-11-24 16:02] LABS: CREATININE 1.6 mg/dL (0.55-1.3)
[2023-11-24 16:03] LABS: BILIRUBIN,TOTAL 0.5 mg/dL (0.2-1)
[2023-11-24 16:11] LABS: BLOOD UREA NITROGEN 71.7 mg/dL (7-18)
[2023-11-24] MEDS: ACETAMINOPHEN 1000 MG/100 ML BAG IVPB PRN (22:20)
[2023-11-25 09:06] LABS: BASO % 0.4 % (0-2.0); EOS % 2.2 % (0-4.5); HEMATOCRIT 35.1 % (35.4-49); HEMOGLOBIN 11.9 GM/dL (11.7-16.9); LYMPH % 24.7 % (8-40); MCH 30.9 pg (25.7-33.7); MCHC 33.8 g/dl (32.0-35.9); MEAN CELL VOLUME 91.5 fl (80-96); MEAN PLT VOLUME 8.4 fl (7.5-11.1); MONO % 11.6 % (3.8-10.2); NEUT % 61.1 % (42.8-82.8); PLATELET COUNT 210 10^3/uL (134-434); RBC 3.84 M/mm3 (4.00-5.60); RDW 13.7 % (11.9-15.9); WHITE BLOOD COUNT 7.2 K/mm3 (4.0-10.0)
[2023-11-25 09:24] LABS: POTASSIUM 4.1 mmol/L (3.5-5.1)
[2023-11-25 09:29] LABS: ALBUMIN 2.6 g/dl (3.4-5.0); BLOOD UREA NITROGEN 80.1 mg/dL (7-18); CALCIUM 9.1 mg/dL (8.5-10.1)
[2023-11-25 09:33] LABS: CREATININE 1.5 mg/dL (0.55-1.3)
[2023-11-25 09:34] LABS: BILIRUBIN,TOTAL 0.5 mg/dL (0.2-1); TOT PROT 5.6 g/dl (6.4-8.2)
[2023-11-25] MEDS: SODIUM CHLORIDE 1,000 ML IV SCH (18:36)
[2023-11-25] MEDS: INSULIN (LEVEMIR) 100 UNITS/ML UNITS SQ SCH (22:40)
[2023-11-26 09:59] LABS: INR 1.03 (0.83-1.09); PROTHROMBIN TIME (PATIENT) 11.8 SEC (9.7-13.0)
[2023-11-26 10:01] LABS: BASO % 0.2 % (0-2.0); HEMATOCRIT 33.1 % (35.4-49); HEMOGLOBIN 11.3 GM/dL (11.7-16.9); LYMPH % 4.9 % (8-40); MCH 30.7 pg (25.7-33.7); MEAN CELL VOLUME 90.3 fl (80-96); MEAN PLT VOLUME 8.7 fl (7.5-11.1); NEUT % 87.9 % (42.8-82.8); PLATELET COUNT 239 10^3/uL (134-434); RBC 3.67 M/mm3 (4.00-5.60); RDW 13.9 % (11.9-15.9); WHITE BLOOD COUNT 14.5 K/mm3 (4.0-10.0)
[2023-11-26 10:15] LABS: POTASSIUM 4.3 mmol/L (3.5-5.1)
[2023-11-26 10:16] LABS: CALCIUM 8.7 mg/dL (8.5-10.1)
[2023-11-26 10:17] LABS: ALBUMIN 2.5 g/dl (3.4-5.0)
[2023-11-26 10:20] LABS: CREATININE 1.7 mg/dL (0.55-1.3)
[2023-11-26 10:21] LABS: BILIRUBIN,TOTAL 0.4 mg/dL (0.2-1); TOT PROT 5.7 g/dl (6.4-8.2)
[2023-11-26] MEDS: AMINO ACIDS 4.25%/D5W 1,000 ML IV SCH (13:44)
[2023-11-26] MEDS: POLYETHYLENE GLYCOL (HEALTHYLAX) 3350 17 GM PACKET PO SCH (15:46)
[2023-11-27 09:50] LABS: CHLORIDE 105 mmol/L (98-107); SODIUM 132 mmol/L (136-145)
[2023-11-27 09:54] LABS: CALCIUM 8.3 mg/dL (8.5-10.1)
[2023-11-27 09:55] LABS: ALBUMIN 2.5 g/dl (3.4-5.0); ANION GAP 11 mmol/L (4-13); CO2 16 mmol/L (21-32)
[2023-11-27 09:57] LABS: CREATININE 1.8 mg/dL (0.55-1.3)
[2023-11-27 09:58] LABS: SGOT/AST 109 U/L (15-37); SGPT/ALT 112 U/L (13-61)
[2023-11-27 09:59] LABS: BILIRUBIN,TOTAL 0.4 mg/dL (0.2-1); TOT PROT 5.4 g/dl (6.4-8.2)
[2023-11-27 10:00] LABS: ALK PHOS 77 U/L (45-117)
[2023-11-27 10:04] LABS: BLOOD UREA NITROGEN 105.4 mg/dL (7-18); GLUCOSE,RANDOM 450 mg/dL (74-106)
[2023-11-27] MEDS ORDERED: POTASSIUM CHLORIDE 10 MEQ in SODIUM CHLORIDE 0.45% 1,000 ML IVPB SCH (12:30)
[2023-11-27] MEDS: SODIUM CHLORIDE 1,000 ML IV SCH (12:36)
[2023-11-27 13:24] LABS: BASO % 0.2 % (0-2.0); EOS % 0.3 % (0-4.5); HEMATOCRIT 32.9 % (35.4-49); HEMOGLOBIN 11.3 GM/dL (11.7-16.9); LYMPH % 15.9 % (8-40); MCH 31.2 pg (25.7-33.7); MCHC 34.4 g/dl (32.0-35.9); MEAN CELL VOLUME 90.7 fl (80-96); MEAN PLT VOLUME 8.9 fl (7.5-11.1); MONO % 8.3 % (3.8-10.2); NEUT % 75.3 % (42.8-82.8); PLATELET COUNT 249 10^3/uL (134-434); RBC 3.63 M/mm3 (4.00-5.60); RDW 14.1 % (11.9-15.9); WHITE BLOOD COUNT 9.6 K/mm3 (4.0-10.0)
[2023-11-27 13:46] LABS: CHLORIDE 105 mmol/L (98-107); POTASSIUM 3.8 mmol/L (3.5-5.1); SODIUM 132 mmol/L (136-145)
[2023-11-27 13:48] LABS: ALBUMIN 2.6 g/dl (3.4-5.0); ANION GAP 11 mmol/L (4-13); CALCIUM 8.6 mg/dL (8.5-10.1); CO2 17 mmol/L (21-32)
[2023-11-27 13:51] LABS: CREATININE 1.8 mg/dL (0.55-1.3); SGOT/AST 92 U/L (15-37); SGPT/ALT 119 U/L (13-61)
[2023-11-27 13:53] LABS: BILIRUBIN,TOTAL 0.3 mg/dL (0.2-1); TOT PROT 5.7 g/dl (6.4-8.2)
[2023-11-27 13:54] LABS: ALK PHOS 78 U/L (45-117)
[2023-11-27 13:58] LABS: GLUCOSE,RANDOM 470 mg/dL (74-106)
[2023-11-27] MEDS: PIPERACILLIN/TAZOB 3.375 GM 3.375 GM in DEXTROSE 5%-WATER - 50 ML IVPB SCH (14:32)
[2023-11-27] MEDS: INSULIN (LEVEMIR) 100 UNITS/ML UNITS SQ SCH (21:42)
[2023-11-28] MEDS ORDERED: INSULIN (LEVEMIR) 100 UNITS/ML UNITS SQ SCH ×2 (08:40→08:41)
[2023-11-28 09:54] LABS: BASO % 0.2 % (0-2.0); EOS % 2.1 % (0-4.5); HEMATOCRIT 29.8 % (35.4-49); HEMOGLOBIN 10.5 GM/dL (11.7-16.9); LYMPH % 17.4 % (8-40); MCH 32.1 pg (25.7-33.7); MCHC 35.2 g/dl (32.0-35.9); MEAN PLT VOLUME 8.6 fl (7.5-11.1); MONO % 10.3 % (3.8-10.2); PLATELET COUNT 215 10^3/uL (134-434); RBC 3.28 M/mm3 (4.00-5.60); RDW 13.9 % (11.9-15.9); WHITE BLOOD COUNT 8.1 K/mm3 (4.0-10.0)
[2023-11-28 10:09] LABS: POTASSIUM 3.9 mmol/L (3.5-5.1)
[2023-11-28 10:12] LABS: CALCIUM 8.2 mg/dL (8.5-10.1)
[2023-11-28 10:13] LABS: ALBUMIN 2.3 g/dl (3.4-5.0)
[2023-11-28 10:16] LABS: BLOOD UREA NITROGEN 74.8 mg/dL (7-18); CREATININE 1.5 mg/dL (0.55-1.3)
[2023-11-28 10:17] LABS: BILIRUBIN,TOTAL 0.4 mg/dL (0.2-1); TOT PROT 5.1 g/dl (6.4-8.2)
[2023-11-28] MEDS: PANTOPRAZOLE 40 MG TABLET PO SCH (10:40)
[2023-11-28] MEDS: VANCOMYCIN/WATER 1250 MG 1,250 MG/250 ML BAG IVPB SCH (14:51)
[2023-11-28] MEDS ORDERED: ACETAMINOPHEN 1000 MG/100 ML BAG IVPB PRN (18:10)
[2023-11-28] MEDS: DEXTROSE 5%-NORMAL SALINE 1,000 ML IV SCH (19:10)
[2023-11-28] MEDS: DEXTROSE 50%-WATER 25 GM/50 ML DISP.SYRIN IVPUSH ONE (19:11)
[2023-11-28] MEDS: INSULIN ASPART SLIDING SCALE (NOVOLOG) 1 VIAL SQ SCH (22:00)
[2023-11-29 09:40] LABS: HEMATOCRIT 33.6 % (35.4-49); HEMOGLOBIN 11.6 GM/dL (11.7-16.9); MCH 31.3 pg (25.7-33.7); MCHC 34.6 g/dl (32.0-35.9); MEAN CELL VOLUME 90.3 fl (80-96); MEAN PLT VOLUME 8.3 fl (7.5-11.1); PLATELET COUNT 231 10^3/uL (134-434); RBC 3.72 M/mm3 (4.00-5.60); RDW 14.3 % (11.9-15.9); WHITE BLOOD COUNT 7.1 K/mm3 (4.0-10.0)
[2023-11-29 09:57] LABS: POTASSIUM 4.3 mmol/L (3.5-5.1)
[2023-11-29 09:59] LABS: ALBUMIN 2.3 g/dl (3.4-5.0); CALCIUM 8.3 mg/dL (8.5-10.1)
[2023-11-29] MEDS: SODIUM CHLORIDE 1,000 ML IV SCH (10:00)
[2023-11-29 10:03] LABS: CREATININE 1.4 mg/dL (0.55-1.3)
[2023-11-29 10:04] LABS: BILIRUBIN,TOTAL 0.5 mg/dL (0.2-1); TOT PROT 5.3 g/dl (6.4-8.2)
[2023-11-29 10:29] LABS: ANISOCYTOSIS 0; MACROCYTOSIS 0
[2023-11-29] MEDS: LOSARTAN POTASSIUM 25 MG TABLET PO ONE (11:25)
[2023-11-30] MEDS: TAMSULOSIN HCL 0.4 MG CAP PO SCH (10:36)
[2023-12-01] MEDS: INSULIN (LEVEMIR) 100 UNITS/ML UNITS SQ SCH (08:53)
[2023-12-01 09:53] LABS: ALBUMIN 2.2 g/dl (3.4-5.0); BLOOD UREA NITROGEN 32.2 mg/dL (7-18); CALCIUM 8.3 mg/dL (8.5-10.1); POTASSIUM 3.7 mmol/L (3.5-5.1)
[2023-12-01 09:56] LABS: BILIRUBIN,TOTAL 0.5 mg/dL (0.2-1); CREATININE 1.4 mg/dL (0.55-1.3)
[2023-12-02 08:17] LABS: BASO % 0.5 % (0-2.0); EOS % 3.9 % (0-4.5); HEMATOCRIT 29.9 % (35.4-49); HEMOGLOBIN 10.6 GM/dL (11.7-16.9); LYMPH % 23.5 % (8-40); MCH 31.6 pg (25.7-33.7); MCHC 35.4 g/dl (32.0-35.9); MEAN CELL VOLUME 89.4 fl (80-96); MONO % 10.5 % (3.8-10.2); NEUT % 61.6 % (42.8-82.8); PLATELET COUNT 217 10^3/uL (134-434); RBC 3.34 M/mm3 (4.00-5.60); RDW 14.1 % (11.9-15.9); WHITE BLOOD COUNT 6.3 K/mm3 (4.0-10.0)
[2023-12-02 08:59] LABS: ALBUMIN 2.2 g/dl (3.4-5.0); BLOOD UREA NITROGEN 27.2 mg/dL (7-18); CALCIUM 8.3 mg/dL (8.5-10.1); POTASSIUM 3.5 mmol/L (3.5-5.1)
[2023-12-02 09:01] LABS: BILIRUBIN,TOTAL 0.5 mg/dL (0.2-1); CREATININE 1.2 mg/dL (0.55-1.3)
[2023-12-02 09:09] LABS: TOT PROT 5.3 g/dl (6.4-8.2)
[2023-12-02] MEDS: amLODIPine BESYLATE 5 MG TABLET (FP) PO SCH (09:30)
[2023-12-04 13:16] LABS: CSF APPEARANCE CLEAR (CLEAR); CSF COLOR COLORLESS (COLORLESS)
[2023-12-04 13:17] LABS: CSF WBC 2 mm3 (0-5)
[2023-12-05 10:11] LABS: BASO % 0.8 % (0-2.0); EOS % 2.6 % (0-4.5); HEMATOCRIT 32.1 % (35.4-49); HEMOGLOBIN 11.1 GM/dL (11.7-16.9); LYMPH % 18.6 % (8-40); MCH 31.1 pg (25.7-33.7); MCHC 34.6 g/dl (32.0-35.9); MEAN CELL VOLUME 89.9 fl (80-96); MONO % 11.3 % (3.8-10.2); NEUT % 66.7 % (42.8-82.8); PLATELET COUNT 218 10^3/uL (134-434); RBC 3.57 M/mm3 (4.00-5.60); RDW 14.1 % (11.9-15.9); WHITE BLOOD COUNT 6.2 K/mm3 (4.0-10.0)
[2023-12-05 10:29] LABS: POTASSIUM 3.8 mmol/L (3.5-5.1)
[2023-12-05 10:31] LABS: ALBUMIN 2.5 g/dl (3.4-5.0)
[2023-12-05 10:33] LABS: BLOOD UREA NITROGEN 15.6 mg/dL (7-18); CALCIUM 8.6 mg/dL (8.5-10.1)
[2023-12-05 10:36] LABS: CREATININE 1.1 mg/dL (0.55-1.3)
[2023-12-05 10:38] LABS: BILIRUBIN,TOTAL 0.8 mg/dL (0.2-1); TOT PROT 5.5 g/dl (6.4-8.2)
[2023-12-05] MEDS: AMINO ACIDS/PROTEIN HYDROLYS 30 ML LIQUID.PKT PO SCH (18:41)
[2023-12-06] MEDS: MULTIVITAMINS (DAILY MVI) TABLET (FP) PO SCH (10:25)
[2023-12-06] MEDS: ASCORBIC ACID 250 MG TABLET (FP) PO SCH (10:26)
[2023-12-06 16:04] VITALS: RESP 18
[2023-12-06] MEDS ORDERED: INSULIN ASPART SLIDING SCALE (NOVOLOG) 1 VIAL SQ ONE (16:53)
[2023-12-07 14:51] VITALS: BP 106/60; PULSE 81; TEMP 98.8
== END 2023-12-07 15:31 | DRG 28 ==
LOC: JER 16:16 → JERBED 20:54 → J4S 11-12 23:56 → OBSVTOIN 11-13 14:31 → J4S 11-14 18:12 → JICU 11-15 16:00 → J5S 11-20 22:36
PROVIDERS: ADMIT Internal Medicine; ATTEND Family Medicine
PROC: 009U00Z Drainage of Spinal Canal with Drainage Device, Open Approach (ICD-10-PCS; principal; 2023-11-15 15:45)
PROC: 00P Central Nervous System and Cranial Nerves, Removal (ICD-10-PCS; 2023-11-19)
PROC: 009U3ZX Drainage of Spinal Canal, Percutaneous Approach, Diagnostic (ICD-10-PCS; 2023-12-03)
DX: G91.2 (Idiopathic) normal pressure hydrocephalus (principal); G03.9 Meningitis, unspecified; G93.41 Metabolic encephalopathy; E87.1 Hypo-osmolality and hyponatremia; J84.9 Interstitial pulmonary disease, unspecified; I45.2 Bifascicular block; N17.9 Acute kidney failure, unspecified; E78.5 Hyperlipidemia, unspecified; G93.89 Other specified disorders of brain; I12.9 Hypertensive chronic kidney disease with stage 1 through stage 4 chronic kidney disease, or unspecified chronic kidney disease; E11.22 Type 2 diabetes mellitus with diabetic chronic kidney disease; N18.9 Chronic kidney disease, unspecified; E11.65 Type 2 diabetes mellitus with hyperglycemia; E88.09 Other disorders of plasma-protein metabolism, not elsewhere classified; E11.40 Type 2 diabetes mellitus with diabetic neuropathy, unspecified; G30.9 Alzheimer's disease, unspecified; F02.80 Dementia in other diseases classified elsewhere, unspecified severity, without behavioral disturbance, psychotic disturbance, mood disturbance, and anxiety; Z79.84 Long term (current) use of oral hypoglycemic drugs; R33.8 Other retention of urine
CPT/HCPCS: 36415; 62272; 70450-TC; 70496-TC; 70498-TC; 70551-TC; 71045-TC-FY; 71250-TC; 74019-TC-FY; 76000-TC-FY; 76775-TC; 76856-TC; 80048; 80053; 81003; 82533; 82945; 82962; 83036; 83605; 83735; 83880; 83930; 83935; 84100; 84157; 84300; 84484; 85025; 85027; 85610; 85730; 87040; 87070; 87075; 87086; 87186; 87205; 87252; 87529; 87635; 93005; 93010; 93306-TC; 97116-GP; 97161-GP; 99285-25; G0378; G0480; J0131; J1644

== ENCOUNTER 2023-12-20 14:58 | Emergency (ER) | payer OTHER ==
[2023-12-20 15:19] VITALS: PULSE 86; BMI 26.6
[2023-12-20 16:26] LABS: EOS % 2.2 % (0-4.5); HEMATOCRIT 31.4 % (35.4-49); HEMOGLOBIN 10.7 GM/dL (11.7-16.9); LYMPH % 24.8 % (8-40); MCHC 34.1 g/dl (32.0-35.9); MEAN PLT VOLUME 8.2 fl (7.5-11.1); MONO % 14.6 % (3.8-10.2); NEUT % 57.4 % (42.8-82.8); PLATELET COUNT 273 10^3/uL (134-434); RBC 3.45 M/mm3 (4.00-5.60); RDW 14.4 % (11.9-15.9); WHITE BLOOD COUNT 6.8 K/mm3 (4.0-10.0)
[2023-12-20 16:32] LABS: INR 1.05 (0.83-1.09); PROTHROMBIN TIME (PATIENT) 12.1 SEC (9.7-13.0)
[2023-12-20 16:35] LABS: ACTIVATED PTT 29.4 SECONDS (25.2-36.5)
[2023-12-20 16:48] LABS: POTASSIUM 4.7 mmol/L (3.5-5.1)
[2023-12-20 16:49] LABS: CALCIUM 9.2 mg/dL (8.5-10.1)
[2023-12-20 16:50] LABS: ALBUMIN 2.9 g/dl (3.4-5.0); BLOOD UREA NITROGEN 40.2 mg/dL (7-18)
[2023-12-20 16:54] LABS: TOT PROT 6.2 g/dl (6.4-8.2)
[2023-12-20 16:55] LABS: BILIRUBIN,TOTAL 0.5 mg/dL (0.2-1)
[2023-12-20 16:58] LABS: N-TERMINAL BNP 87.3 pg/ml (5-450)
[2023-12-20 18:51] LABS: LACTIC ACID 2.4 mmol/L (0.4-2.0)
[2023-12-20 20:47] LABS: URINE APPEARANCE CLEAR; URINE BILIRUBIN NEGATIVE (NEGATIVE); URINE COLOR YELLOW; URINE GLUCOSE (UA) NEGATIVE (NEGATIVE); URINE KETONE NEGATIVE (NEGATIVE); URINE LEUK ESTERASE NEGATIVE (NEGATIVE); URINE NITRITE NEGATIVE (NEGATIVE); URINE PROTEIN NEGATIVE (NEGATIVE)
[2023-12-20] MEDS: FOLIC ACID INJECTION - 1 MG, THIAMINE HCL 100 MG, MULTIVIT INJECTION ADULT 10 ML in SOD... IVPB ONE (20:54)
[2023-12-20] MEDS ORDERED: LIDOCAINE HCL 2% (20ML MULTI-DOSE VIAL) ONE (23:03)
[2023-12-21 02:02] LABS: CSF APPEARANCE CLEAR (CLEAR); CSF COLOR COLORLESS (COLORLESS); CSF WBC 0 mm3 (0-5)
[2023-12-21 04:48] VITALS: RESP 16; TEMP 97.4
[2023-12-21 09:45] VITALS: BP 163/74
== END 2023-12-21 10:00 ==
LOC: JER 14:58
PROC: 3E033GC Introduction of Other Therapeutic Substance into Peripheral Vein, Percutaneous Approach (ICD-10-PCS; principal; 2023-12-20)
DX: R41.82 Altered mental status, unspecified (principal); R55 Syncope and collapse
CPT/HCPCS: 36415; 70450-TC; 71045-TC-FY; 80053; 81003; 82550; 83605; 83880; 85025; 85610; 85730; 86140; 87086; 93005; 93010; 99285-25

== ENCOUNTER 2024-01-10 12:21 | Inpatient (IN) | payer OTHER ==
[2024-01-10] MEDS ORDERED: PIPERACILLIN/TAZOB 4.5 GM 4.5 GM/100 ML BAG IVPB ONE (13:47)
[2024-01-10] MEDS ORDERED: DOXYCYCLINE HYCLATE 100 MG VIAL ONE (13:51)
[2024-01-10] MEDS ORDERED: VANCOMYCIN 1 GRAM (PRE-DOCKED) 1,000 MG/250 ML BAG IVPB ONE (13:52)
[2024-01-10 13:55] LABS: BASO % 0.8 % (0-2.0); EOS % 1.9 % (0-4.5); HEMATOCRIT 28.1 % (35.4-49); HEMOGLOBIN 9.5 GM/dL (11.7-16.9); LYMPH % 17.2 % (8-40); MCH 31.2 pg (25.7-33.7); MCHC 33.8 g/dl (32.0-35.9); MEAN CELL VOLUME 92.1 fl (80-96); MEAN PLT VOLUME 8.1 fl (7.5-11.1); MONO % 8.9 % (3.8-10.2); NEUT % 71.2 % (42.8-82.8); PLATELET COUNT 329 10^3/uL (134-434); RBC 3.05 M/mm3 (4.00-5.60); RDW 14.5 % (11.9-15.9); WHITE BLOOD COUNT 10.4 K/mm3 (4.0-10.0)
[2024-01-10] MEDS: PIPERACILLIN/TAZOB 4.5 GM 4.5 GM in DEXTROSE 5%-WATER 100 ML IVPB ONE (14:07)
[2024-01-10 14:16] LABS: VENOUS BASE EXCESS -0.9 mmol/L (-2-2); VENOUS O2 SATURATION 49.8 % (70-80); VENOUS PCO2 44.7 mmHg (38-52); VENOUS PH 7.359 (7.310-7.410)
[2024-01-10 14:23] LABS: POTASSIUM 4.8 mmol/L (3.5-5.1)
[2024-01-10 14:24] LABS: CALCIUM 8.5 mg/dL (8.5-10.1)
[2024-01-10 14:26] LABS: ALBUMIN 2.2 g/dl (3.4-5.0)
[2024-01-10 14:28] LABS: CREATININE 1.2 mg/dL (0.55-1.3)
[2024-01-10 14:30] LABS: BILIRUBIN,TOTAL 0.4 mg/dL (0.2-1); TOT PROT 5.7 g/dl (6.4-8.2)
[2024-01-10 17:15] LABS: N-TERMINAL BNP 477.1 pg/ml (5-450)
[2024-01-10] MEDS: FUROSEMIDE 40 MG/4 ML INJECTABLE VIAL IVPUSH ONE (17:38)
[2024-01-10] MEDS: PIPERACILLIN/TAZOB 3.375 GM 3.375 GM in DEXTROSE 5%-WATER - 50 ML IVPB SCH (17:39)
[2024-01-10] MEDS: AMINO ACIDS/PROTEIN HYDROLYS 30 ML LIQUID.PKT PO SCH (17:50)
[2024-01-10] MEDS: INSULIN ASPART SLIDING SCALE (NOVOLOG) 1 VIAL SQ SCH ×2 (18:31→19:55)
[2024-01-10] MEDS: DOXYCYCLINE INJECTION 100 MG in DEXTROSE 5%-WATER 100 ML IVPB ONE ×2 (18:31→20:13)
[2024-01-10] MEDS: VANCOMYCIN 1,000 MG in DEXTROSE 5%-WATER - 250 ML IVPB ONE (18:31)
[2024-01-10] MEDS: VANCOMYCIN/WATER FOR INJ (PEG) 1,000 MG/200 ML BAG IVPB ONE (18:32)
[2024-01-10] MEDS: ALBUTEROL SO4 HFA INHALER IH PRN (18:32)
[2024-01-10] MEDS: ALBUTEROL SO4 2.5/IPRATROPIUM 0.5 INH SOL 3 ML VIAL.NEB. NEB PRN (19:00)
[2024-01-10] MEDS: HEPARIN NA (PORCINE) 5,000 UNITS/ML 1ML VIAL SQ SCH (22:23)
[2024-01-10] MEDS: INSULIN (LEVEMIR) 100 UNITS/ML UNITS SQ SCH (22:25)
[2024-01-11] MEDS: POLYETHYLENE GLYCOL (HEALTHYLAX) 3350 17 GM PACKET PO SCH (06:42)
[2024-01-11 08:34] LABS: VENOUS BASE EXCESS 1.3 mmol/L (-2-2); VENOUS O2 SATURATION 49.6 % (70-80); VENOUS PCO2 41.9 mmHg (38-52); VENOUS PH 7.411 (7.310-7.410)
[2024-01-11] MEDS: LOSARTAN POTASSIUM 50 MG TABLET PO SCH (09:34)
[2024-01-11] MEDS: PANTOPRAZOLE 40 MG TABLET PO SCH (09:35)
[2024-01-11] MEDS: ASPIRIN 81 MG CHEWABLE TABLETS PO SCH (09:35)
[2024-01-11] MEDS: TAMSULOSIN HCL 0.4 MG CAP PO SCH (09:35)
[2024-01-11] MEDS: amLODIPine BESYLATE 5 MG TABLET (FP) PO SCH (09:35)
[2024-01-11] MEDS ORDERED: PATIENT'S OWN MEDICATION (NON-FORMULARY) (Telmisartan [Telmisartan] 40 MG Tablet) PO SCH (10:00)
[2024-01-11 10:48] LABS: BASO % 0.5 % (0-2.0); EOS % 0.6 % (0-4.5); HEMATOCRIT 27.8 % (35.4-49); HEMOGLOBIN 9.3 GM/dL (11.7-16.9); LYMPH % 10.4 % (8-40); MCH 30.5 pg (25.7-33.7); MCHC 33.4 g/dl (32.0-35.9); MEAN CELL VOLUME 91.4 fl (80-96); MEAN PLT VOLUME 8.4 fl (7.5-11.1); MONO % 8.1 % (3.8-10.2); NEUT % 80.4 % (42.8-82.8); PLATELET COUNT 335 10^3/uL (134-434); RBC 3.05 M/mm3 (4.00-5.60); RDW 14.4 % (11.9-15.9); WHITE BLOOD COUNT 13.1 K/mm3 (4.0-10.0)
[2024-01-11 11:05] LABS: POTASSIUM 4.3 mmol/L (3.5-5.1)
[2024-01-11 11:11] LABS: CALCIUM 8.4 mg/dL (8.5-10.1)
[2024-01-11 11:12] LABS: ALBUMIN 2.1 g/dl (3.4-5.0); BLOOD UREA NITROGEN 23.2 mg/dL (7-18)
[2024-01-11 11:14] LABS: MAGNESIUM 1.9 mg/dL (1.8-2.4)
[2024-01-11 11:15] LABS: BILIRUBIN,TOTAL 0.7 mg/dL (0.2-1); CREATININE 1.6 mg/dL (0.55-1.3); TOT PROT 5.7 g/dl (6.4-8.2)
[2024-01-11] MEDS: PIPERACILLIN/TAZOB 3.375 GM 3.375 GM in DEXTROSE 5%-WATER - 50 ML IVPB SCH (13:38)
[2024-01-11] MEDS: methylPREDNISolone NA SUCC 40 MG/1 ML VIAL IVPUSH ONE (17:57)
[2024-01-11] MEDS: FUROSEMIDE 40 MG/4 ML INJECTABLE VIAL IVPUSH ONE (17:57)
[2024-01-11] MEDS: ALBUTEROL SO4 2.5/IPRATROPIUM 0.5 INH SOL 3 ML VIAL.NEB. NEB ONE (18:16)
[2024-01-11] MEDS: ATORVASTATIN CA 10 MG TABLET (FP) PO SCH (21:36)
[2024-01-11] MEDS: DOXYCYCLINE INJECTION 100 MG in DEXTROSE 5%-WATER 100 ML IVPB SCH (21:37)
[2024-01-12 07:52] LABS: HEMATOCRIT 23.6 % (35.4-49); HEMOGLOBIN 7.8 GM/dL (11.7-16.9); MCH 30.3 pg (25.7-33.7); MCHC 33.3 g/dl (32.0-35.9); MEAN PLT VOLUME 7.6 fl (7.5-11.1); PLATELET COUNT 320 10^3/uL (134-434); RBC 2.59 M/mm3 (4.00-5.60); RDW 14.3 % (11.9-15.9); WHITE BLOOD COUNT 8.1 K/mm3 (4.0-10.0)
[2024-01-12 08:06] LABS: POTASSIUM 3.7 mmol/L (3.5-5.1)
[2024-01-12 08:09] LABS: ALBUMIN 1.9 g/dl (3.4-5.0); CALCIUM 8.4 mg/dL (8.5-10.1)
[2024-01-12 08:13] LABS: CREATININE 1.8 mg/dL (0.55-1.3)
[2024-01-12 08:14] LABS: BILIRUBIN,TOTAL 0.5 mg/dL (0.2-1); TOT PROT 5.5 g/dl (6.4-8.2)
[2024-01-12 09:18] LABS: ANISOCYTOSIS 0; HELMET CELLS 0; HOWELL-JOLLY BODIES 0; MACROCYTOSIS 0; OVALOCYTE 0; ROULEAU 0; SICKELED CELLS 0; TARGET CELLS 0; TEAR DROP CELLS 0; TOXIC GRANULATION 0
[2024-01-13] MEDS ORDERED: DEXTROSE 25 % IN WATER 2.5 GM/10 ML SYRINGE IVPB ONE (05:40)
[2024-01-13 09:45] LABS: BASO % 0.1 % (0-2.0); HEMATOCRIT 23.2 % (35.4-49); HEMOGLOBIN 7.9 GM/dL (11.7-16.9); LYMPH % 5.8 % (8-40); MCH 30.6 pg (25.7-33.7); MCHC 34.1 g/dl (32.0-35.9); MEAN CELL VOLUME 89.9 fl (80-96); MEAN PLT VOLUME 7.6 fl (7.5-11.1); MONO % 6.8 % (3.8-10.2); NEUT % 87.3 % (42.8-82.8); PLATELET COUNT 345 10^3/uL (134-434); RBC 2.58 M/mm3 (4.00-5.60); RDW 14.2 % (11.9-15.9); WHITE BLOOD COUNT 13.1 K/mm3 (4.0-10.0)
[2024-01-13 10:04] LABS: POTASSIUM 3.4 mmol/L (3.5-5.1)
[2024-01-13 10:20] LABS: ALBUMIN 1.9 g/dl (3.4-5.0); CALCIUM 8.4 mg/dL (8.5-10.1)
[2024-01-13 10:21] LABS: BLOOD UREA NITROGEN 54.8 mg/dL (7-18)
[2024-01-13 10:25] LABS: BILIRUBIN,TOTAL 0.3 mg/dL (0.2-1); TOT PROT 5.3 g/dl (6.4-8.2)
[2024-01-13] MEDS ORDERED: KCL 10 MEQ IVPB 10 MEQ/100 ML INFUS.BAG IVPB SCH (12:00)
[2024-01-13] MEDS ORDERED: DEXTROSE 50%-WATER 25 GM/50 ML DISP.SYRIN ONE (17:19)
[2024-01-13] MEDS: KCL 10 MEQ IVPB 10 MEQ/100 ML INFUS.BAG IVPB SCH (18:30)
[2024-01-13] MEDS: DEXTROSE 50%-WATER 25 GM/50 ML DISP.SYRIN IVPUSH ONE (18:31)
[2024-01-14] MEDS: D5-1/2NS+30 MEQ KCL - 30 MEQ/1,000 ML INFUS.BAG IV SCH (00:27)
[2024-01-14] MEDS: DEXTROSE 50%-WATER 25 GM/50 ML DISP.SYRIN IVPUSH ONE (06:30)
[2024-01-14 08:25] LABS: BASO % 0.4 % (0-2.0); EOS % 2.2 % (0-4.5); HEMATOCRIT 18.8 % (35.4-49); LYMPH % 11.7 % (8-40); MCH 30.8 pg (25.7-33.7); MCHC 33.7 g/dl (32.0-35.9); MEAN CELL VOLUME 91.6 fl (80-96); MEAN PLT VOLUME 7.6 fl (7.5-11.1); MONO % 8.4 % (3.8-10.2); NEUT % 77.3 % (42.8-82.8); PLATELET COUNT 458 10^3/uL (134-434); RBC 2.05 M/mm3 (4.00-5.60); RDW 14.3 % (11.9-15.9); WHITE BLOOD COUNT 12.1 K/mm3 (4.0-10.0)
[2024-01-14 08:44] LABS: HEMOGLOBIN 6.3 GM/dL (11.7-16.9); POTASSIUM 3.6 mmol/L (3.5-5.1)
[2024-01-14 09:02] LABS: CALCIUM 8.6 mg/dL (8.5-10.1)
[2024-01-14 09:03] LABS: ALBUMIN 2.1 g/dl (3.4-5.0)
[2024-01-14 09:06] LABS: BILIRUBIN,TOTAL 0.6 mg/dL (0.2-1); CREATININE 1.5 mg/dL (0.55-1.3)
[2024-01-14 09:07] LABS: TOT PROT 5.7 g/dl (6.4-8.2)
[2024-01-14] MEDS: PANTOPRAZOLE SODIUM 40 MG VIAL IVPUSH SCH (10:54)
[2024-01-14] MEDS: FUROSEMIDE 40 MG/4 ML INJECTABLE VIAL IVPUSH SCH (10:54)
[2024-01-15 07:32] LABS: BASO % 0.2 % (0-2.0); HEMATOCRIT 33.9 % (35.4-49); HEMOGLOBIN 11.8 GM/dL (11.7-16.9); LYMPH % 16.1 % (8-40); MCHC 34.7 g/dl (32.0-35.9); MEAN CELL VOLUME 89.1 fl (80-96); MEAN PLT VOLUME 7.8 fl (7.5-11.1); MONO % 8.4 % (3.8-10.2); NEUT % 71.3 % (42.8-82.8); PLATELET COUNT 365 10^3/uL (134-434); RBC 3.81 M/mm3 (4.00-5.60); WHITE BLOOD COUNT 10.2 K/mm3 (4.0-10.0)
[2024-01-15 07:44] LABS: POTASSIUM 3.3 mmol/L (3.5-5.1)
[2024-01-15 07:50] LABS: BLOOD UREA NITROGEN 38.3 mg/dL (7-18)
[2024-01-15 07:51] LABS: CALCIUM 8.4 mg/dL (8.5-10.1)
[2024-01-15 07:52] LABS: TOT PROT 5.6 g/dl (6.4-8.2)
[2024-01-15 07:54] LABS: CREATININE 1.5 mg/dL (0.55-1.3)
[2024-01-15] MEDS: KCL 10 MEQ IVPB 10 MEQ/100 ML INFUS.BAG IVPB SCH (08:54)
[2024-01-15] MEDS: AMINO ACIDS 4.25%/D5W 1,000 ML IV SCH (08:54)
[2024-01-15] MEDS: POTASSIUM CHLORIDE 20 MEQ in AMINO ACIDS 4.25%/D5W 1,000 ML IV SCH (13:44)
[2024-01-15] MEDS: PIPERACILLIN/TAZOB 3.375 GM 50 ML IVPB SCH (17:51)
[2024-01-15 22:33] VITALS: BMI 23.8
[2024-01-16 09:06] LABS: BASO % 0.4 % (0-2.0); EOS % 2.8 % (0-4.5); HEMATOCRIT 34.2 % (35.4-49); HEMOGLOBIN 11.7 GM/dL (11.7-16.9); LYMPH % 13.4 % (8-40); MCH 30.7 pg (25.7-33.7); MCHC 34.1 g/dl (32.0-35.9); MEAN CELL VOLUME 90.1 fl (80-96); MEAN PLT VOLUME 7.8 fl (7.5-11.1); MONO % 6.4 % (3.8-10.2); PLATELET COUNT 361 10^3/uL (134-434); RBC 3.79 M/mm3 (4.00-5.60); RDW 14.5 % (11.9-15.9); WHITE BLOOD COUNT 10.5 K/mm3 (4.0-10.0)
[2024-01-16 09:14] LABS: POTASSIUM 3.7 mmol/L (3.5-5.1)
[2024-01-16 09:18] LABS: ALBUMIN 1.9 g/dl (3.4-5.0)
[2024-01-16 09:21] LABS: CREATININE 1.6 mg/dL (0.55-1.3)
[2024-01-16 09:22] LABS: BILIRUBIN,TOTAL 0.6 mg/dL (0.2-1); TOT PROT 5.4 g/dl (6.4-8.2)
[2024-01-16] MEDS ORDERED: ALBUTEROL SO4 HFA INHALER IH PRN (11:00)
[2024-01-16] MEDS: INSULIN ASPART SLIDING SCALE (NOVOLOG) 1 VIAL SQ SCH (13:35)
[2024-01-16] MEDS: HEPARIN NA (PORCINE) 5,000 UNITS/ML 1ML VIAL SQ SCH (16:02)
[2024-01-16] MEDS: POTASSIUM CHLORIDE 20 MEQ in AMINO ACIDS 4.25%/D5W 1,000 ML IV SCH ×2 (16:03→16:14)
[2024-01-16] MEDS: FUROSEMIDE 40 MG/4 ML INJECTABLE VIAL IVPUSH SCH (16:03)
[2024-01-16] MEDS: POLYETHYLENE GLYCOL (HEALTHYLAX) 3350 17 GM PACKET PO SCH (16:04)
[2024-01-16] MEDS: AMINO ACIDS/PROTEIN HYDROLYS 30 ML LIQUID.PKT PO SCH (18:05)
[2024-01-16] MEDS: INSULIN (LEVEMIR) 100 UNITS/ML UNITS SQ SCH (21:41)
[2024-01-16] MEDS: ATORVASTATIN CA 10 MG TABLET (FP) PO SCH (21:42)
[2024-01-16] MEDS: DOXYCYCLINE INJECTION 100 MG in DEXTROSE 5%-WATER 100 ML IVPB SCH (21:42)
[2024-01-17] MEDS: TAMSULOSIN HCL 0.4 MG CAP PO SCH (08:06)
[2024-01-17 09:20] LABS: BASO % 0.2 % (0-2.0); EOS % 0.8 % (0-4.5); HEMATOCRIT 39.8 % (35.4-49); HEMOGLOBIN 13.8 GM/dL (11.7-16.9); LYMPH % 6.8 % (8-40); MCH 30.9 pg (25.7-33.7); MCHC 34.6 g/dl (32.0-35.9); MEAN CELL VOLUME 89.3 fl (80-96); MEAN PLT VOLUME 8.1 fl (7.5-11.1); MONO % 6.9 % (3.8-10.2); NEUT % 85.3 % (42.8-82.8); PLATELET COUNT 387 10^3/uL (134-434); RBC 4.45 M/mm3 (4.00-5.60); RDW 14.5 % (11.9-15.9); WHITE BLOOD COUNT 15.5 K/mm3 (4.0-10.0)
[2024-01-17 09:51] LABS: POTASSIUM 3.8 mmol/L (3.5-5.1)
[2024-01-17 10:17] LABS: BLOOD UREA NITROGEN 64.1 mg/dL (7-18)
[2024-01-17 10:20] LABS: CALCIUM 9.2 mg/dL (8.5-10.1)
[2024-01-17 10:21] LABS: MAGNESIUM 1.9 mg/dL (1.8-2.4)
[2024-01-17 10:23] LABS: ALBUMIN 2.3 g/dl (3.4-5.0); BILIRUBIN,TOTAL 0.9 mg/dL (0.2-1); CREATININE 1.9 mg/dL (0.55-1.3)
[2024-01-17 10:24] LABS: TOT PROT 6.5 g/dl (6.4-8.2)
[2024-01-17] MEDS: LOSARTAN POTASSIUM 50 MG TABLET PO SCH (10:44)
[2024-01-17] MEDS: amLODIPine BESYLATE 5 MG TABLET (FP) PO SCH (10:44)
[2024-01-17] MEDS: FUROSEMIDE 40 MG/4 ML INJECTABLE VIAL IVPUSH SCH (14:16)
[2024-01-17] MEDS: ALBUMIN HUMAN 25% 12.5 GM/50 ML VIAL IV SCH (15:21)
[2024-01-18 09:46] LABS: BASO % 0.5 % (0-2.0); EOS % 1.9 % (0-4.5); HEMATOCRIT 36.3 % (35.4-49); HEMOGLOBIN 12.2 GM/dL (11.7-16.9); LYMPH % 14.4 % (8-40); MCH 29.9 pg (25.7-33.7); MCHC 33.5 g/dl (32.0-35.9); MEAN CELL VOLUME 89.2 fl (80-96); MONO % 7.1 % (3.8-10.2); NEUT % 76.1 % (42.8-82.8); PLATELET COUNT 362 10^3/uL (134-434); RBC 4.07 M/mm3 (4.00-5.60); RDW 14.2 % (11.9-15.9); WHITE BLOOD COUNT 12.5 K/mm3 (4.0-10.0)
[2024-01-18 10:12] LABS: POTASSIUM 3.2 mmol/L (3.5-5.1)
[2024-01-18 10:13] LABS: ALBUMIN 2.6 g/dl (3.4-5.0); BLOOD UREA NITROGEN 74.2 mg/dL (7-18); CALCIUM 9.3 mg/dL (8.5-10.1)
[2024-01-18 10:18] LABS: BILIRUBIN,TOTAL 0.8 mg/dL (0.2-1); TOT PROT 6.4 g/dl (6.4-8.2)
[2024-01-19] MEDS: morphine SULFATE 4 MG/ML VIAL IM PRN (09:08)
[2024-01-19 09:15] LABS: BASO % 0.6 % (0-2.0); EOS % 1.2 % (0-4.5); HEMOGLOBIN 12.7 GM/dL (11.7-16.9); LYMPH % 16.9 % (8-40); MCH 30.1 pg (25.7-33.7); MCHC 33.3 g/dl (32.0-35.9); MEAN CELL VOLUME 90.4 fl (80-96); MEAN PLT VOLUME 8.5 fl (7.5-11.1); NEUT % 74.3 % (42.8-82.8); PLATELET COUNT 396 10^3/uL (134-434); RBC 4.21 M/mm3 (4.00-5.60); RDW 14.2 % (11.9-15.9); WHITE BLOOD COUNT 12.9 K/mm3 (4.0-10.0)
[2024-01-19 09:31] LABS: POTASSIUM 3.6 mmol/L (3.5-5.1)
[2024-01-19 09:35] LABS: CALCIUM 9.3 mg/dL (8.5-10.1)
[2024-01-19 09:36] LABS: ALBUMIN 2.5 g/dl (3.4-5.0)
[2024-01-19 09:39] LABS: CREATININE 1.7 mg/dL (0.55-1.3)
[2024-01-19 09:40] LABS: BILIRUBIN,TOTAL 0.8 mg/dL (0.2-1); TOT PROT 6.4 g/dl (6.4-8.2)
[2024-01-20 09:40] LABS: EPI CELLS >36 /uL (0-25.1); HYALINE CASTS 2 /uL (0-3.1); PH,URINE 5.5 (5.0-8.0); URINE APPEARANCE CLOUDY; URINE BACTERIA 104 /uL (0-1359); URINE BILIRUBIN NEGATIVE (NEGATIVE); URINE COLOR YELLOW; URINE GLUCOSE (UA) NEGATIVE (NEGATIVE); URINE KETONE NEGATIVE (NEGATIVE); URINE LEUK ESTERASE 2+ (NEGATIVE); URINE NITRITE NEGATIVE (NEGATIVE); URINE PROTEIN 1+ (NEGATIVE); URINE UROBILINOGEN 0.2 mg/dL (0.2-1.0); URINE WBC 61 /uL (0-25.8)
[2024-01-20 09:44] LABS: URINE RBC 136.9 /uL (0-23.9)
[2024-01-21] MEDS ORDERED: MORPHINE SULFATE/0.9% NACL/PF 100 MG/100 ML BAG IVPB SCH (12:30)
[2024-01-21] MEDS: MORPHINE 100 MG/100 ML MG IVPB SCH (13:32)
[2024-01-23 10:04] VITALS: BP 87/35; PULSE 92; RESP 11; TEMP 98.2
[2024-01-23] MEDS: MORPHINE SULFATE/0.9% NACL/PF 100 MG/100 ML BAG IVPB SCH (11:46)
== END 2024-01-23 21:23 | disposition expired | DRG 196 ==
LOC: JER 12:21 → JERBED 14:07 → J8W 15:04 → J4S 01-11 18:46
PROVIDERS: ADMIT Family Medicine; ATTEND Family Medicine
PROC: 30233N1 Transfusion of Nonautologous Red Blood Cells into Peripheral Vein, Percutaneous Approach (ICD-10-PCS; principal; 2024-01-14)
DX: J84.9 Interstitial pulmonary disease, unspecified (principal); G93.41 Metabolic encephalopathy; J96.01 Acute respiratory failure with hypoxia; I50.33 Acute on chronic diastolic (congestive) heart failure; I45.2 Bifascicular block; G91.2 (Idiopathic) normal pressure hydrocephalus; N17.9 Acute kidney failure, unspecified; I13.0 Hypertensive heart and chronic kidney disease with heart failure and stage 1 through stage 4 chronic kidney disease, or unspecified chronic kidney disease; N13.30 Unspecified hydronephrosis; E78.5 Hyperlipidemia, unspecified; F03.90 Unspecified dementia, unspecified severity, without behavioral disturbance, psychotic disturbance, mood disturbance, and anxiety; D64.9 Anemia, unspecified; R13.10 Dysphagia, unspecified; E87.6 Hypokalemia; N18.9 Chronic kidney disease, unspecified; E11.22 Type 2 diabetes mellitus with diabetic chronic kidney disease; N40.0 Benign prostatic hyperplasia without lower urinary tract symptoms
CPT/HCPCS: 0241U-QW; 36415; 36430; 70450-TC; 71045-TC-FY; 71250-TC; 80053; 81003; 82728; 82803; 82962; 83540; 83550; 83735; 83880; 84443; 84484; 85025; 86850; 86900; 86901; 86922; 87040; 87086; 87633; 87899; 93005; 93010; 93306-TC; 94640; 99285-25; J1644; P9047; P9058